=== PATIENT | female | born 1955 | race Caucasian/White ===

== ENCOUNTER 2019-04-22 23:29 | Emergency (ER) | payer SELFPAY ==
[2019-04-23] MEDS ORDERED: LIDOCAINE JELLY 2%- 5 ML TUBE ONE (00:13)
[2019-04-23 00:19] LABS: Absolute Lymphocytes (CBC) 1.8 K/uL (0.7-4.9); Absolute Monocytes 0.7 K/uL (0.1-1.3); Absolute Neutrophil 3.9 K/uL (1.8-8.0); Basophils % 1.3 % (0-1.3); Eosinophils % 4.7 % (0-4.4); Hematocrit 38.7 % (36.0-45.0); Lymphocytes % 25.7 % (15.3-44.8); MPV 7.8 fL (7.6-11.3); Monocytes % 10.8 % (3.3-12.3)
[2019-04-23 00:33] LABS: BUN Blood Urea Nitrogen 7 mg/dL (7-18); Bicarbonate 25 mmol/L (21-32); Glucose Level 71 mg/dL (74-106); Potassium 3.5 mmol/L (3.5-5.1); Sodium Level 126 mmol/L (136-145)
[2019-04-23] MEDS ORDERED: NA CHLORIDE 0.9% 50 ML IV ONE (01:00)
[2019-04-23] MEDS ORDERED: CLINDAMYCIN IV 150 MG/ML (4 mL) VIAL ONE (01:01)
--- NOTE | 2019-04-23 01:05 | EDPHYS ---
Physician Documentation [facility] Name: Kristin Meyers Age: 63 yrs Sex: Female : 1955 Arrival Date: 04/22/2019 Time: 23:30 Bed 17 Private MD: ED Physician David Muñoz HPI: 04/22 23:55 This 63 yrs old Female presents to ER via Ambulatory with complaints of cp Insect Bite. 23:55 The patient or guardian complains of a bite, by an insect, swelling, tenderness. The cp complaints affect the medial aspect right upper arm. Context: Patient reports she was taking trash out when she struck spider web with right arm and felt spider bite. Patient reports increasing redness, swelling and drainage. Onset: The symptoms/episode began/occurred this morning. Treatment prior to arrival includes: no previous treatment. Associated signs and symptoms: Pertinent positives: erythema, swelling, warmth, Pertinent negatives: decreased range of motion, fever, numbness, vomiting. 23:55 Severity of symptoms: in the emergency department the symptoms are unchanged, despite cp home interventions. Historical: - Allergies: 23:41 Keflex; aa1 - Home Meds: 23:41 clonazepam 0.5 mg Oral tab 1 tab nightly [Active]; hydrocodone-acetaminophen 10-325 mg aa1 Oral tab 1 tab every 4 hours [Active]; Nuvigil Oral [Active]; Tramadol Oral [Active]; - PMHx: 23:41 Back pain; Chronic pain; Fibromyalgia; aa1 - PSHx: 23:41 Hysterectomy; R hip sx; Bladder suspension; aa1 - Immunization history:: Last tetanus immunization: < 5 years ago. - Social history:: Smoking status: Patient uses tobacco products, smokes one pack cigarettes per day. - Ebola Screening: : No symptoms or risks identified at this time. ROS: 04/23 00:05 Constitutional: Negative for body aches, chills, fever, poor PO intake. cp 00:05 Eyes: Negative for injury, pain, redness, and discharge. cp 00:05 ENT: Negative for drainage from ear(s), ear pain, sore throat, difficulty swallowing, difficulty handling secretions. 00:05 Cardiovascular: Negative for chest pain, palpitations. 00:05 Respiratory: Negative for cough, shortness of breath, wheezing. 00:05 Abdomen/GI: Negative for abdominal pain, nausea, vomiting, and diarrhea. 00:05 Skin: Positive for erythema, swelling, of the medial aspect right upper arm. 00:05 Neuro: Negative for altered mental status, dizziness, headache, weakness. 00:05 All other systems are negative. Exam: 00:10 Constitutional: The patient appears in no acute distress, alert, awake, cp non-diaphoretic, non-toxic, well developed, well nourished. 00:10 Head/Face: Normocephalic, atraumatic. cp 00:10 Eyes: Periorbital structures: appear normal, Conjunctiva: normal, no exudate, no injection, Sclera: no appreciated abnormality, Lids and lashes: appear normal, bilaterally. 00:10 ENT: External ear(s): are unremarkable, Nose: is normal, Mouth: is normal, Posterior pharynx: is normal, airway is patent, no erythema, no exudate, Voice: is normal. 00:10 Chest/axilla: Inspection: normal. 00:10 Cardiovascular: Rate: normal, Rhythm: regular. 00:10 Respiratory: the patient does not display signs of respiratory distress, Respirations: normal, no use of accessory muscles, no retractions, no splinting, no tachypnea, labored breathing, is not present, Breath sounds: are clear throughout, no decreased breath sounds, no stridor, no wheezing. 00:10 Abdomen/GI: Exam negative for discomfort, distension, guarding, Inspection: abdomen appears normal. 00:10 Back: pain, is absent, ROM is normal. 00:10 Skin: cellulitis, that is moderate, well demarcated, on the medial aspect right upper arm. Vital Signs: 04/22 23:41 BP 172 / 83; Pulse 79; Resp 18; Temp 97.3; Pulse Ox 99% on R/A; Weight 49.9 kg (R); aa1 Height 5 ft. 5 in. (165.10 cm) (R); Pain 0/10; 04/23 00:30 BP 141 / 89; Pulse 82; Resp 16; Pulse Ox 99% on R/A; mt 01:30 BP 145 / 91; Pulse 67; Resp 17 S; Pulse Ox 98% on R/A; cc3 04/22 23:41 Body Mass Index 18.30 (49.90 kg, 165.10 cm) aa1 MDM: 04/22 23:44 Patient medically screened. 04/23 00:00 Differential diagnosis: cellulitis, abscess, localized allergic reaction. cp 01:02 Data reviewed: vital signs, nurses notes, lab test result(s), and as a result, I will cp discharge patient. 01:02 Counseling: I had a detailed discussion with the patient and/or guardian regarding: the cp historical points, exam findings, and any diagnostic results supporting the discharge/admit diagnosis, lab results, the need for outpatient follow up, a family practitioner, to return to the emergency department if symptoms worsen or persist or if there are any questions or concerns that arise at home. Response to treatment: the patient's symptoms have mildly improved after treatment, and as a result, I will discharge patient. 04/22 23:52 Order name: Wound Culture 04/22 23:52 Order name: BMP; Complete Time: 00:35 cp 04/23 00:34 Interpretation: Normal except: NA 126; CL 94; GLUC 71; CRE 0.37; CA 8.2. 04/22 23:52 Order name: Misc. Order: outline area of erythema; Complete Time: 01:03 04/22 23:52 Order name: CBC with Diff; Complete Time: 00:35 04/22 23:52 Order name: Wound dressing: bacitracin; Complete Time: 00:41 cp 04/22 23:52 Order name: IV; Complete Time: 00:40 cp Administered Medications: 00:15 Drug: Lidocaine Gel 2 % 1 ea Volume: 15 ml; Route: Mucous Membrane; cc3 00:30 Follow up: Response: No adverse reaction cc3 01:00 Drug: Clindamycin 600 mg Route: IVPB; Infused Over: 30 mins; Site: left antecubital; cc3 01:30 Follow up: Response: No adverse reaction; IV Status: Completed infusion; IV Intake: [id number] Disposition: 23:56 Co-signature as Attending Physician, David Muñoz MD. Disposition: 04/23/19 01:03 Discharged to Home. Impression: Cellulitis of right upper limb. - Condition is Stable. - Discharge Instructions: Cellulitis, Adult. - Prescriptions for Clindamycin HCl 300 mg Oral Capsule - take 1 capsule by ORAL route every 6 hours for 10 days; 40 capsule. Bactrim DS 800- 160 mg Oral Tablet - take 1 tablet by ORAL route every 12 hours for 10 days; 20 tablet. - Medication Reconciliation Form, Thank You Letter, Antibiotic Education, Prescription Opioid Use form. - Follow up: Private Physician; When: 48 Hours; Reason: Recheck today's complaints. - Problem is new. - Symptoms have improved. Signatures: Dispatcher [employer] EDMS Marian Stallings RN RN aa1 Mars Perez PA PA cp Starr, Gregory, MD MD gs Cordel, Charlene cc3 Corrections: (The following items were deleted from the chart) 00:35 00:34 Normal except: NA 126; CL 94; GLUC 71; CRE 0.37. cp cp 01:39 01:03 04/23/2019 01:03 Discharged to Home. Impression: Cellulitis of right upper limb. cc3 Condition is Stable. Forms are Medication Reconciliation Form, Thank You Letter, Antibiotic Education, Prescription Opioid Use. Follow up: Private Physician; When: 48 Hours; Reason: Recheck today's complaints. Problem is new. Symptoms have improved. cp
--- NOTE | 2019-04-23 01:05 | ER ---
Nurse's Notes [facility] Name: Kristin Meyers Age: 63 yrs Sex: Female : 1955 Arrival Date: 04/22/2019 Time: 23:30 Bed 17 Private MD: Diagnosis: Cellulitis of right upper limb Presentation: 04/22 23:38 Presenting complaint: Patient states: she got into a spider web this morning and felt aa1 something bite the back of her R arm and now has redness and blisters starting to form and c/o pain \T\ itching. Transition of care: patient was not received from another setting of care. Onset of symptoms was April 22, 2019. Risk Assessment: Do you want to hurt yourself or someone else? Patient reports no desire to harm self or others. Initial Sepsis Screen: Does the patient meet any 2 criteria? No. Patient's initial sepsis screen is negative. Does the patient have a suspected source of infection? No. Patient's initial sepsis screen is negative. Care prior to arrival: None. 23:38 Method Of Arrival: Ambulatory aa1 23:38 Acuity: ANAHI 4 aa1 Triage Assessment: 23:41 Bite description: bite sustained to right bicep and right antecubital area is from aa1 insect by a spider, animal information: vaccination(s) is not applicable. General: Appears in no apparent distress. comfortable, Behavior is calm, cooperative, appropriate for age. Historical: - Allergies: 23:41 Keflex; aa1 - Home Meds: 23:41 clonazepam 0.5 mg Oral tab 1 tab nightly [Active]; hydrocodone-acetaminophen 10-325 mg aa1 Oral tab 1 tab every 4 hours [Active]; Nuvigil Oral [Active]; Tramadol Oral [Active]; - PMHx: 23:41 Back pain; Chronic pain; Fibromyalgia; aa1 - PSHx: 23:41 Hysterectomy; R hip sx; Bladder suspension; aa1 - Immunization history:: Last tetanus immunization: < 5 years ago. - Social history:: Smoking status: Patient uses tobacco products, smokes one pack cigarettes per day. - Ebola Screening: : No symptoms or risks identified at this time. Screenin:55 Abuse screen: Denies threats or abuse. Denies injuries from another. Nutritional cc3 screening: No deficits noted. Tuberculosis screening: No symptoms or risk factors identified. Fall Risk Ambulatory Aid- None/Bed Rest/Nurse Assist (0 pts). Gait- Normal/Bed Rest/Wheelchair (0 pts) Mental Status- Oriented to own ability (0 pts). Assessment: 23:55 Pain: Complains of pain in right arm and right bicep. Derm: Skin has blisters on right cc3 arm Skin is red, on the right arm. 04/23 00:18 Reassessment: Patient appears in no apparent distress at this time. Patient and/or cc3 family updated on plan of care and expected duration. Pain level reassessed. Patient is alert, oriented x 3, equal unlabored respirations, skin warm/dry/pink. 01:40 Reassessment: Patient appears in no apparent distress at this time. Patient and/or cc3 family updated on plan of care and expected duration. Pain level reassessed. Patient is alert, oriented x 3, equal unlabored respirations, skin warm/dry/pink. RADHA Perez discharged the patient home with prescription given. IV cannula removed and patient left ER vitally stable and ambulatory. Patient denies pain at this time. Patient states feeling better. Patient states symptoms have improved. Vital Signs: 04/22 23:41 BP 172 / 83; Pulse 79; Resp 18; Temp 97.3; Pulse Ox 99% on R/A; Weight 49.9 kg (R); aa1 Height 5 ft. 5 in. (165.10 cm) (R); Pain 0/10; 04/23 00:30 BP 141 / 89; Pulse 82; Resp 16; Pulse Ox 99% on R/A; mt 01:30 BP 145 / 91; Pulse 67; Resp 17 S; Pulse Ox 98% on R/A; cc3 04/22 23:41 Body Mass Index 18.30 (49.90 kg, 165.10 cm) aa1 ED Course: 04/22 23:30 Patient arrived in ED. es 23:40 Triage completed. aa1 23:41 Arm band placed on right wrist. Patient placed in an exam room, on a stretcher. aa1 23:44 Mars Perez PA is PHCP. cp 23:44 David Muñoz MD is Attending Physician. cp 23:52 Stefani Wilson is Primary Nurse. cc3 23:55 Patient has correct armband on for positive identification. Bed in low position. Call cc3 light in reach. Side rails up X 1. Pulse ox on. NIBP on. 04/23 00:10 Inserted saline lock: 20 gauge in left antecubital area, using aseptic technique. Blood cc3 collected. 01:40 No provider procedures requiring assistance completed. IV discontinued, intact, cc3 bleeding controlled, No redness/swelling at site. Pressure dressing applied. Administered Medications: 00:15 Drug: Lidocaine Gel 2 % 1 ea Volume: 15 ml; Route: Mucous Membrane; cc3 00:30 Follow up: Response: No adverse reaction cc3 01:00 Drug: Clindamycin 600 mg Route: IVPB; Infused Over: 30 mins; Site: left antecubital; cc3 01:30 Follow up: Response: No adverse reaction; IV Status: Completed infusion; IV Intake: [id number] Intake: 01:30 IV: 50ml; Total: 50ml. cc3 Outcome: 01:03 Discharge ordered by MD. cp 01:39 Patient left the ED. cc3 01:40 Discharged to home ambulatory. cc3 01:40 Condition: stable 01:40 Discharge instructions given to patient, Instructed on discharge instructions, follow up and referral plans. medication usage, Demonstrated understanding of instructions, follow-up care, medications, Prescriptions given X 2. Signatures: Marian Stallings RN RN aa1 Swati Valentine Corey, PA PA cp Thompson, Stefani Jones mt cc3 Corrections: (The following items were deleted from the chart) 02:31 02:30 Response: No adverse reaction cc3 cc3
[2019-04-23 01:43] VITALS: TEMP 97.3; O2SAT 99
[2019-04-23 01:45] VITALS: BP 141/89
== END 2019-04-23 01:39 | disposition home or self-care (01) ==
LOC: ER 23:29
DX: L03.113 Cellulitis of right upper limb (principal); F17.210 Nicotine dependence, cigarettes, uncomplicated; Z88.1 Allergy status to other antibiotic agents
CPT/HCPCS: 36415; 80048; 85025; 87070; 87205; 96365; 99284; S0077

== ENCOUNTER 2019-04-25 23:21 | Emergency (ER) | payer SELFPAY ==
[2019-04-26 00:04] LABS: Absolute Lymphocytes (CBC) 1.3 K/uL (0.7-4.9); Basophils % 1.1 % (0-1.3); Hematocrit 38.1 % (36.0-45.0); Lymphocytes % 23.1 % (15.3-44.8); MPV 8.1 fL (7.6-11.3); RBC Red Blood Cell Count 4.09 M/uL (3.86-4.86)
[2019-04-26 00:08] LABS: Protime INR 0.96
[2019-04-26] MEDS ORDERED: NA CHLORIDE 0.9% 1,000 ML ONE (00:12)
[2019-04-26 00:23] LABS: ALT/SGPT 29 U/L (12-78); AST/SGOT 26 U/L (15-37); Albumin 4.2 g/dL (3.4-5.0); Alkaline Phosphatase 66 U/L (45-117); BUN Blood Urea Nitrogen 6 mg/dL (7-18); Bicarbonate 23 mmol/L (21-32); Bilirubin Direct 0.1 mg/dL (0-0.2); Bilirubin Total 0.3 mg/dL (0.2-1.0); Glucose Level 73 mg/dL (74-106); Magnesium 1.8 mg/dL (1.8-2.4); NT PRO-BNP 67 pg/mL (<125); Potassium 4.3 mmol/L (3.5-5.1); Protein, Total 7.2 g/dL (6.4-8.2); Sodium Level 121 mmol/L (136-145); Troponin (Emerg Dept Use Only) < 0.02 ng/mL (0.0-0.045)
[2019-04-26] MEDS ORDERED: ASPIRIN 81 MG CHEWABLE TABLET ONE (00:25)
[2019-04-26 02:51] LABS: BUN Blood Urea Nitrogen 6 mg/dL (7-18); Bicarbonate 21 mmol/L (21-32); Glucose Level 74 mg/dL (74-106); Potassium 4.3 mmol/L (3.5-5.1); Sodium Level 123 mmol/L (136-145); Troponin (Emerg Dept Use Only) < 0.02 ng/mL (0.0-0.045)
--- NOTE | 2019-04-26 02:58 | EDPHYS ---
Physician Documentation [facility] Name: Kristin Meyers Age: 63 yrs Sex: Female : 1955 Arrival Date: 04/25/2019 Time: 23:27 Bed 27 Private MD: ED Physician Epi Love HPI: 04/26 00:07 This 63 yrs old Female presents to ER via EMS with complaints of chest/back snw pain. 00:07 The patient or guardian reports chest pain that is located primarily in the anterior snw chest wall, bilaterally. Onset: suddenly, just post taking Clindamycin. The pain radiates to back. Associated signs and symptoms: Pertinent positives: None. The chest pain is described as squeezing. Duration: The patient or guardian reports multiple episodes. Modifying factors: The symptoms are alleviated by nothing. the symptoms are aggravated by nothing. Severity of pain: At its worst the pain was moderate. EMS care prior to arrival includes: saline lock, supplemental oxygen. The patient has not experienced similar symptoms in the past. The patient has been recently seen by a physician: The patient has been recently seen at the [facility] Emergency Department, for unrelated complaints, was treated for cellulitis, area is much improved. Pt took her clindamycin on an empty stomach and then had sudden chest pain with some nausea. Pt with ETOH today. Historical: - Allergies: 04/25 23:33 Keflex; mg2 - Home Meds: 23:33 clonazepam 0.5 mg Oral tab 1 tab nightly [Active]; hydrocodone-acetaminophen 10-325 mg mg2 Oral tab 1 tab every 4 hours [Active]; Nuvigil Oral [Active]; Tramadol Oral [Active]; - PMHx: 23:33 Back pain; Chronic pain; Fibromyalgia; mg2 - PSHx: 23:33 Hysterectomy; ruptured bladder repair; mg2 - Immunization history:: Flu vaccine is not up to date. - Social history:: Smoking status: Patient uses tobacco products, smokes one-half pack cigarettes per day, Patient uses alcohol, weekly. Patient/guardian denies using street drugs, IV drugs. - Ebola Screening: : No symptoms or risks identified at this time. ROS: 04/26 00:01 Constitutional: Negative for fever, chills, and weight loss, Eyes: Negative for injury, snw pain, redness, and discharge, ENT: Negative for injury, pain, and discharge, Neck: Negative for injury, pain, and swelling. Respiratory: Negative for shortness of breath, cough, wheezing, and pleuritic chest pain, Abdomen/GI: Negative for abdominal pain, nausea, vomiting, diarrhea, and constipation, Back: Negative for injury, positive for pain, : Negative for injury, bleeding, discharge, and swelling, MS/Extremity: Negative for injury and deformity, Skin: Negative for injury, rash, and discoloration, Neuro: Negative for headache, weakness, numbness, tingling, and seizure. Cardiovascular: Positive for chest pain. Exam: 00:01 Constitutional: This is a well developed, well nourished patient who is awake, alert, snw and in no acute distress. Head/Face: Normocephalic, atraumatic. Eyes: Pupils equal round and reactive to light, extra-ocular motions intact. Lids and lashes normal. Conjunctiva and sclera are non-icteric and not injected. Cornea within normal limits. Periorbital areas with no swelling, redness, or edema. ENT: Nares patent. No nasal discharge, no septal abnormalities noted. Tympanic membranes are normal and external auditory canals are clear. Oropharynx with no redness, swelling, or masses, exudates, or evidence of obstruction, uvula midline. Mucous membranes moist. Neck: Trachea midline, no thyromegaly or masses palpated, and no cervical lymphadenopathy. Supple, full range of motion without nuchal rigidity, or vertebral point tenderness. No Meningismus. Chest/axilla: Normal chest wall appearance and motion. Nontender with no deformity. No lesions are appreciated. Cardiovascular: Regular rate and rhythm with a normal S1 and S2. No gallops, murmurs, or rubs. Normal PMI, no JVD. No pulse deficits. Respiratory: Lungs have equal breath sounds bilaterally, clear to auscultation and percussion. No rales, rhonchi or wheezes noted. No increased work of breathing, no retractions or nasal flaring. Abdomen/GI: Soft, non-tender, with normal bowel sounds. No distension or tympany. No guarding or rebound. No evidence of tenderness throughout. Back: No spinal tenderness. No costovertebral tenderness. Full range of motion. Skin: Warm, dry with normal turgor. Normal color with no rashes, healing lesions to right forearm, and no evidence of cellulitis. MS/ Extremity: Pulses equal, no cyanosis. Neurovascular intact. Full, normal range of motion. Neuro: Awake and alert, GCS 15, oriented to person, place, time, and situation. Cranial nerves II-XII grossly intact. Motor strength 5/5 in all extremities. Sensory grossly intact. Cerebellar exam normal. Normal gait. Vital Signs: 04/25 23:31 BP 155 / 99; Pulse 80; Resp 18; Temp 98.3; Pulse Ox 96% on R/A; Weight 48.53 kg; Height mg2 5 ft. 5 in. (165.10 cm); Pain 8/10; 04/26 01:17 BP 139 / 91; Pulse 73; Resp 18; Temp 98.2; Pulse Ox 97% on R/A; Pain 2/10; mg2 02:21 BP 126 / 78; Pulse 70; Resp 18; Temp 98.2; Pulse Ox 97% on R/A; Pain 1/10; mg2 04/25 23:31 Body Mass Index 17.81 (48.53 kg, 165.10 cm) mg2 MDM: 04/25 23:52 Patient medically screened. snw 04/26 03:05 The patient was given aspirin in the Emergency Department. JOSE Risk Score: 1 - Recent snw [<24hrs] Severe Angina, TOTAL SCORE = 1. Data reviewed: vital signs, nurses notes, lab test result(s), EKG. 04/25 23:36 Order name: Basic Metabolic Panel mg2 04/25 23:36 Order name: CBC with Diff; Complete Time: 00:11 mg2 04/25 23:36 Order name: LFT's mg2 04/25 23:36 Order name: Magnesium mg2 04/25 23:36 Order name: NT PRO-BNP; Complete Time: 00:37 mg2 04/25 23:36 Order name: PT-INR; Complete Time: 00:11 mg2 04/25 23:36 Order name: Troponin (emerg Dept Use Only); Complete Time: 00:37 mg2 04/25 23:36 Order name: XRAY Chest (1 view) mg2 04/25 23:37 Order name: Basic Metabolic Panel; Complete Time: 00:37 EDMS 04/25 23:37 Order name: Liver (Hepatic) Function; Complete Time: 00:37 EDMS 04/25 23:37 Order name: Magnesium; Complete Time: 00:37 EDMS 04/26 02:05 Order name: Chem 7; Complete Time: 02:51 snw 04/26 02:05 Order name: Troponin (emerg Dept Use Only); Complete Time: 02:51 snw 04/25 23:36 Order name: EKG; Complete Time: 23:37 mg2 04/25 23:36 Order name: Cardiac monitoring; Complete Time: 23:53 mg2 04/25 23:36 Order name: EKG - Nurse/Tech; Complete Time: :52 mg2 04/25 23:36 Order name: IV Saline Lock; Complete Time: :52 mg2 04/25 23:36 Order name: Labs collected and sent; Complete Time: :52 mg2 04/25 23:36 Order name: O2 Per Protocol; Complete Time: :52 mg2 04/25 23:36 Order name: O2 Sat Monitoring; Complete Time: 23:52 mg2 Administered Medications: 00:00 Drug: NS 0.9% 1000 ml Route: IV; Rate: 125 ml/hr; Site: right forearm; mg2 02:58 Follow up: Response: No adverse reaction; IV Status: Completed infusion; IV Intake: mg2 500ml 00:14 Drug: Aspirin Chewable Tablet 324 mg Route: PO; mg2 01:52 Follow up: Response: No adverse reaction; Marked relief of symptoms mg2 00:42 Drug: NS 0.9% 500 ml Route: IV; Rate: bolus; Site: right forearm; mg2 02:43 Follow up: Response: No adverse reaction; IV Status: Completed infusion mg2 Disposition: 04:28 Co-signature as Attending Physician, Epi Love MD. rn Disposition: 04/26/19 02:57 Discharged to Home. Impression: Chest pain, unspecified, Hyponatremia. - Condition is Stable. - Discharge Instructions: Nonspecific Chest Pain, Hyponatremia, Aspirin and Your Heart. - Medication Reconciliation Form, Thank You Letter, Antibiotic Education, Prescription Opioid Use form. - Follow up: Private Physician; When: 2 - 3 days; Reason: Recheck today's complaints, Continuance of care, Re-evaluation by your physician. Follow up: Emergency Department; When: As needed; Reason: Worsening of condition. - Notes: Please stop Bactrim. Continue Clindamycin. Eat with this medication. Please avoid alcohol. Signatures: Dispatcher [employer] EDMS Clemencia Kumar, LAWYER CRIMINAL-C LAWYER CRIMINAL-Csnw Epi Love MD MD rn Gardose, Michele, RN RN mg2 Corrections: (The following items were deleted from the chart) 03:21 02:57 04/26/2019 02:57 Discharged to Home. Impression: Chest pain, unspecified; mg2 Hyponatremia. Condition is Stable. Forms are Medication Reconciliation Form, Thank You Letter, Antibiotic Education, Prescription Opioid Use. Follow up: Private Physician; When: 2 - 3 days; Reason: Recheck today's complaints, Continuance of care, Re-evaluation by your physician. Follow up: Emergency Department; When: As needed; Reason: Worsening of condition. snw
--- NOTE | 2019-04-26 02:58 | ER ---
Nurse's Notes [facility] Name: Kristin Meyers Age: 63 yrs Sex: Female : 1955 Arrival Date: 04/25/2019 Time: 23:27 Bed 27 Private MD: Diagnosis: Chest pain, unspecified;Hyponatremia Presentation: 04/25 23:27 Presenting complaint: EMS states: patient was here last Monday because of spider bite mg2 and was given IV antibiotic and discharge with clindamycin and bactrim. now , she is complaining of epigastric pain radiating to the chest and back with throat tightness. she also had 2 bottles of beer this afternoon. Transition of care: patient was not received from another setting of care. Onset of symptoms was April 25, 2019. Risk Assessment: Do you want to hurt yourself or someone else? Patient reports no desire to harm self or others. Initial Sepsis Screen: Does the patient meet any 2 criteria? No. Patient's initial sepsis screen is negative. Does the patient have a suspected source of infection? No. Patient's initial sepsis screen is negative. Care prior to arrival: None. 23:27 Method Of Arrival: EMS: [facility] mg2 23:27 Acuity: ANAHI 3 mg2 Historical: - Allergies: 23:33 Keflex; mg2 - Home Meds: 23:33 clonazepam 0.5 mg Oral tab 1 tab nightly [Active]; hydrocodone-acetaminophen 10-325 mg mg2 Oral tab 1 tab every 4 hours [Active]; Nuvigil Oral [Active]; Tramadol Oral [Active]; - PMHx: 23:33 Back pain; Chronic pain; Fibromyalgia; mg2 - PSHx: 23:33 Hysterectomy; ruptured bladder repair; mg2 - Immunization history:: Flu vaccine is not up to date. - Social history:: Smoking status: Patient uses tobacco products, smokes one-half pack cigarettes per day, Patient uses alcohol, weekly. Patient/guardian denies using street drugs, IV drugs. - Ebola Screening: : No symptoms or risks identified at this time. Screenin/31 00:03 Abuse screen: Denies threats or abuse. Denies injuries from another. Nutritional mg2 screening: No deficits noted. Tuberculosis screening: No symptoms or risk factors identified. Fall Risk IV access (20 points). Assessment: 00:14 General: Appears in no apparent distress. comfortable, Behavior is calm, cooperative. mg2 Pain: Complains of pain in chest Pain radiates to back Pain currently is 8 out of 10 on a pain scale. Quality of pain is described as heavy, Pain began 4 hours ago. Is intermittent. Neuro: Level of Consciousness is awake, alert, obeys commands, Oriented to person, place, time, situation. Cardiovascular: Capillary refill < 3 seconds Patient's skin is warm and dry. Respiratory: Airway is patent Respiratory effort is even, unlabored, Respiratory pattern is regular, symmetrical. GI: Abdomen is flat, non-distended, Reports epigastric pain. : No signs and/or symptoms were reported regarding the genitourinary system. EENT: Reports throat tightness. Derm: Skin is intact, is healthy with good turgor, Skin is pink, warm \T\ dry. normal. Musculoskeletal: Circulation, motion, and sensation intact. Capillary refill < 3 seconds. 01:17 Reassessment: Patient appears in no apparent distress at this time. Patient and/or mg2 family updated on plan of care and expected duration. Pain level reassessed. Patient is alert, oriented x 3, equal unlabored respirations, skin warm/dry/pink. Patient states feeling better. Patient states symptoms have improved. 02:42 Reassessment: Patient appears in no apparent distress at this time. Patient and/or mg2 family updated on plan of care and expected duration. Pain level reassessed. Patient is alert, oriented x 3, equal unlabored respirations, skin warm/dry/pink. Patient states feeling better. Vital Signs: 04/25 23:31 BP 155 / 99; Pulse 80; Resp 18; Temp 98.3; Pulse Ox 96% on R/A; Weight 48.53 kg; Height mg2 5 ft. 5 in. (165.10 cm); Pain 8/10; 04/26 01:17 BP 139 / 91; Pulse 73; Resp 18; Temp 98.2; Pulse Ox 97% on R/A; Pain 2/10; mg2 02:21 BP 126 / 78; Pulse 70; Resp 18; Temp 98.2; Pulse Ox 97% on R/A; Pain 1/10; mg2 04/25 23:31 Body Mass Index 17.81 (48.53 kg, 165.10 cm) mg2 ED Course: 04/25 23:27 Patient arrived in ED. mg2 23:31 Triage completed. mg2 23:33 Arm band placed on right wrist. mg2 23:34 Antolin Lal RN is Primary Nurse. mg2 23:47 Clemencia [facility]C [facility]. snw 23:47 Epi Love MD is Attending Physician. snw 23:53 Basic Metabolic Panel Sent. cm6 23:53 LFT's Sent. cm6 23:53 Magnesium Sent. cm6 23:56 X-ray completed. Portable x-ray completed in exam room. Patient tolerated procedure kw well. 23:57 XRAY Chest (1 view) In Process Unspecified. EDMS 04/26 00:02 No provider procedures requiring assistance completed. Inserted saline lock: 20 gauge mg2 in right forearm, using aseptic technique. Blood collected. 00:16 Patient has correct armband on for positive identification. mg2 02:22 Repeat lab(s) drawn. by co, sent to lab. mg2 03:10 IV discontinued, intact, bleeding controlled, No redness/swelling at site. Pressure mg2 dressing applied. Administered Medications: 00:00 Drug: NS 0.9% 1000 ml Route: IV; Rate: 125 ml/hr; Site: right forearm; mg2 02:58 Follow up: Response: No adverse reaction; IV Status: Completed infusion; IV Intake: mg2 500ml 00:14 Drug: Aspirin Chewable Tablet 324 mg Route: PO; mg2 01:52 Follow up: Response: No adverse reaction; Marked relief of symptoms mg2 00:42 Drug: NS 0.9% 500 ml Route: IV; Rate: bolus; Site: right forearm; mg2 02:43 Follow up: Response: No adverse reaction; IV Status: Completed infusion mg2 Intake: 02:58 IV: 500ml; Total: 500ml. mg2 Outcome: 02:57 Discharge ordered by . snw 03:10 Discharged to home ambulatory. mg2 03:10 Condition: stable 03:10 Discharge instructions given to patient, Instructed on discharge instructions, follow up and referral plans. Demonstrated understanding of instructions, follow-up care. 03:21 Patient left the ED. mg2 Signatures: Dispatcher [employer] EDMS Clemencia Kumar FNP-C CONSERVATION AGENT-[facility] [place] Dai kw Antolin Lal RN RN mg2 [place] cm6
[2019-04-26 03:28] VITALS: TEMP 98.2; O2SAT 97
[2019-04-26 03:29] VITALS: BP 126/78
--- NOTE | 2019-04-26 08:38 | EKG ---
Test Date: 2019-04-25 Test Time: 23:40:22 Survey Research Teacher: MG MEASUREMENT RESULTS: Intervals: Rate: 81 IA: 146 QRSD: 92 QT: 374 QTc: 434 [place]: P: 56 IA: 146 QRS: 65 T: 70 INTERPRETIVE STATEMENTS: Normal sinus rhythm Possible Lateral infarct, age undetermined Abnormal ECG No previous ECG available for comparison Electronically Signed On 04-26-19 08:37:19 CDT by Shaun London
--- NOTE | 2019-04-26 08:38 | RAD REPORT ---
EXAM DESCRIPTION: RAD - Chest Single View - 04/25/2019 11:59 pm CLINICAL HISTORY: CHEST PAIN Chest pain. COMPARISON: CHEST PA AND LAT 2 VIEW dated 07/19/2009; CHEST PA AND LAT 2 VIEW dated 01/30/2005 FINDINGS: Portable technique limits examination quality. Diffuse emphysema is present. The heart is mildly prominent in size. No displaced fractures.Old left lateral rib fractures. IMPRESSION: Diffuse COPD.
== END 2019-04-26 03:21 | disposition home or self-care (01) ==
LOC: ER 23:21
DX: E87.1 Hypo-osmolality and hyponatremia (principal); F17.210 Nicotine dependence, cigarettes, uncomplicated; Z88.1 Allergy status to other antibiotic agents
CPT/HCPCS: 36415; 71045; 80048; 80076; 83735; 83880; 84484; 85025; 85610; 93005; 96360; 96361; 99284; J7030

== ENCOUNTER 2020-07-21 00:25 | Emergency (ER) | payer SELFPAY ==
[2020-07-21] MEDS ORDERED: KETOROLAC 30 MG/ML INJ ONE (01:38)
[2020-07-21 01:43] LABS: Basophils % 0.5 % (0-1.3); Hematocrit 37.2 % (36.0-45.0); Lymphocytes % 10.2 % (15.3-44.8); MPV 8.8 fL (7.6-11.3); Protime INR 1.09; RBC Red Blood Cell Count 3.96 M/uL (3.86-4.86)
[2020-07-21 01:57] LABS: ALT/SGPT 27 U/L (12-78); AST/SGOT 25 U/L (15-37); Albumin 4.1 g/dL (3.4-5.0); Alkaline Phosphatase 78 U/L (45-117); BUN Blood Urea Nitrogen 7 mg/dL (7-18); Bicarbonate 29 mmol/L (21-32); Bilirubin Direct 0.3 mg/dL (0-0.2); Bilirubin Total 0.8 mg/dL (0.2-1.0); Glucose Level 73 mg/dL (74-106); Magnesium 1.8 mg/dL (1.8-2.4); NT PRO-BNP 266 pg/mL (<125); Potassium 3.7 mmol/L (3.5-5.1); Protein, Total 7.9 g/dL (6.4-8.2); Sodium Level 133 mmol/L (136-145); Troponin (Emerg Dept Use Only) < 0.02 ng/mL (0.0-0.045)
--- NOTE | 2020-07-21 02:50 | EDPHYS ---
Physician Documentation [facility] Name: Kristin Meyers Age: 64 yrs Sex: Female : 1955 Arrival Date: 07/21/2020 Time: 00:27 Bed 16 Private MD: ED Physician Aime Malloy HPI: 07/21 06:43 This 64 yrs old Female presents to ER via Wheelchair with complaints of Leg tw4 Swelling, Feet Swelling, Back Pain. 06:43 The patient presents with swelling. The complaints affect the lateral aspect of left tw4 calf, left lateral ankle, lateral aspect of left foot, left calf, left Achilles, left heel, medial aspect of left calf, left medial ankle, medial aspect of left foot, left waters, anterior aspect of left ankle and dorsum of left foot, lateral aspect of right calf, right ankle, lateral aspect of right foot, right calf, right Achilles, right heel, medial aspect of right calf, medial aspect of right foot, right waters, anterior aspect of right ankle and dorsum of right foot. Context: The problem was sustained at home, resulted from. Onset: The symptoms/episode began/occurred today. Modifying factors: The symptoms are alleviated by nothing. the symptoms are aggravated by nothing. Severity of symptoms: At their worst the symptoms were moderate, in the emergency department the symptoms are unchanged. The patient has not experienced similar symptoms in the past. Historical: - Allergies: 01:04 No Known Drug Allergies; vc - Home Meds: 01:04 clonazepam 0.5 mg Oral tab 1 tab nightly [Active]; hydrocodone-acetaminophen 10-325 mg vc Oral tab 1 tab every 4 hours [Active]; Nuvigil 200 mg oral tab twice a day [Active]; - PMHx: 01:04 Back pain; Chronic pain; Fibromyalgia; chronic fatique; Osteoarthritis; vc - PSHx: 01:04 Hysterectomy; ruptured bladder repair; right femur fracture; vc - Immunization history:: Adult Immunizations up to date. - Social history:: Smoking status: Patient reports the use of cigarette tobacco products, smokes one pack cigarettes per day. ROS: 06:43 Constitutional: Negative for fever, chills, and weight loss, Eyes: Negative for injury, tw4 pain, redness, and discharge, Cardiovascular: Negative for chest pain, palpitations, and edema, Respiratory: Negative for shortness of breath, cough, wheezing, and pleuritic chest pain, Abdomen/GI: Negative for abdominal pain, nausea, vomiting, diarrhea, and constipation, MS/Extremity: Negative for injury and deformity, Skin: Negative for injury, rash, and discoloration, Neuro: Negative for headache, weakness, numbness, tingling, and seizure. Exam: 06:43 Constitutional: This is a well developed, well nourished patient who is awake, alert, tw4 and in no acute distress. Head/Face: Normocephalic, atraumatic. Chest/axilla: Normal chest wall appearance and motion. Nontender with no deformity. No lesions are appreciated. Cardiovascular: Regular rate and rhythm with a normal S1 and S2. No gallops, murmurs, or rubs. Normal PMI, no JVD. No pulse deficits. Respiratory: Lungs have equal breath sounds bilaterally, clear to auscultation and percussion. No rales, rhonchi or wheezes noted. No increased work of breathing, no retractions or nasal flaring. Abdomen/GI: Soft, non-tender, with normal bowel sounds. No distension or tympany. No guarding or rebound. No evidence of tenderness throughout. Back: No spinal tenderness. No costovertebral tenderness. Full range of motion. MS/ Extremity: Pulses equal, no cyanosis. Neurovascular intact. Full, normal range of motion. Neuro: Awake and alert, GCS 15, oriented to person, place, time, and situation. Cranial nerves II-XII grossly intact. Motor strength 5/5 in all extremities. Sensory grossly intact. Cerebellar exam normal. Normal gait. Vital Signs: 00:56 BP 131 / 99; Pulse 81; Resp 20; Temp 99.2; Pulse Ox 100% on R/A; Weight 45.36 kg; vc Height 5 ft. 5 in. (165.10 cm); Pain 10/10; 01:00 BP 120 / 68; Pulse 79; Resp 20; Pulse Ox 100% on R/A; vc 02:00 BP 94 / 64; Pulse 69; Resp 21; Pulse Ox 96% on R/A; vc 02:52 BP 130 / 78; Pulse 74; Resp 21; Pulse Ox 100% on R/A; vc 00:56 Body Mass Index 16.64 (45.36 kg, 165.10 cm) vc MDM: 00:38 Patient medically screened. tw4 06:44 Differential diagnosis: dislocation, open fracture, closed fracture. Data reviewed: tw4 vital signs, nurses notes. Data interpreted: Pulse oximetry: Interpretation: normal. Counseling: I had a detailed discussion with the patient and/or guardian regarding: the historical points, exam findings, and any diagnostic results supporting the discharge/admit diagnosis. Special discussion: I discussed with the patient/guardian in detail that at this point there is no indication for admission to the hospital. It is understood, however, that if the symptoms persist or worsen the patient needs to return immediately for re-evaluation. 07/21 01:10 Order name: Basic Metabolic Panel; Complete Time: 02:46 07/21 02:46 Interpretation: Normal except: GLUC 73; CRE 0.52; NA 133. 07/21 01:10 Order name: CBC with Diff; Complete Time: 02:46 07/21 02:49 Interpretation: Normal except: ASHLEY% 75.9; MN% 12.8; LYM% 10.2. 07/21 01:10 Order name: LFT's; Complete Time: 02:46 07/21 02:49 Interpretation: Normal except: BILID 0.3; GLOB 3.8. 07/21 01:10 Order name: Magnesium; Complete Time: 02:46 07/21 01:10 Order name: NT PRO-BNP; Complete Time: 02:46 07/21 02:49 Interpretation: Normal except: NT PRO-BNP 266. 07/21 01:10 Order name: PT-INR; Complete Time: 02:46 07/21 02:49 Interpretation: Normal except: PT 12.8. 07/21 01:10 Order name: Troponin (emerg Dept Use Only); Complete Time: 02:46 07/21 01:10 Order name: XRAY Chest (1 view) 07/21 01:10 Order name: EKG; Complete Time: 01:11 07/21 01:10 Order name: Cardiac monitoring; Complete Time: :42 07/21 01:10 Order name: EKG - Nurse/Tech; Complete Time: :42 07/21 01:10 Order name: IV Saline Lock; Complete Time: 01:42 tw4 07/21 01:10 Order name: Labs collected and sent; Complete Time: 07/21 01:10 Order name: O2 Per Protocol; Complete Time: 07/21 01:10 Order name: O2 Sat Monitoring; Complete Time: EC:43 Rate is 75 beats/min. Rhythm is regular. QRS [place] is Normal. LA interval is normal. QRS tw4 interval is normal. QT interval is normal. No Q waves. T waves are Flattened. No ST changes noted. Clinical impression: Normal ECG. Interpreted by me. Reviewed by me. Administered Medications: 01:33 Drug: TORadol 30 mg Route: IVP; Site: left forearm; vc 02:40 Follow up: Response: No adverse reaction vc 03:08 Drug: Lasix 40 mg Route: IVP; Site: left antecubital; vc 03:29 Follow up: Response: No adverse reaction vc Disposition: 07/21/20 02:50 Discharged to Home. Impression: Edema, not elsewhere classified. - Condition is Stable. - Discharge Instructions: Peripheral Edema. - Medication Reconciliation Form, Thank You Letter, Antibiotic Education, Prescription Opioid Use form. - Follow up: Private Physician; When: Upon discharge from the Emergency Department; Reason: Recheck today's complaints, Continuance of care, Re-evaluation by your physician. - Problem is new. - Symptoms are unchanged. Signatures: Dispatcher [employer] Aime Keen MD MD tw4 Cherelle Patiño RN RN vc Corrections: (The following items were deleted from the chart) 03:35 02:50 07/21/2020 02:50 Discharged to Home. Impression: Edema, not elsewhere classified. vc Condition is Stable. Forms are Medication Reconciliation Form, Thank You Letter, Antibiotic Education, Prescription Opioid Use. Follow up: Private Physician; When: Upon discharge from the Emergency Department; Reason: Recheck today's complaints, Continuance of care, Re-evaluation by your physician. Problem is new. Symptoms are unchanged. tw4
--- NOTE | 2020-07-21 02:50 | ER ---
Nurse's Notes [facility] Name: Kristin Meyres Age: 64 yrs Sex: Female : 1955 Arrival Date: 07/21/2020 Time: 00:27 Bed 16 Private MD: Diagnosis: Edema, not elsewhere classified Presentation: 07/21 00:56 Chief complaint: Patient states: "Both of my legs started selling Monday, now they vc hurt so bad. I also have an excruciating pain in the middle of the left side of my back that shoots to the front of my ribs on the left side. I took 1/2 a methadone to try and help with the pain because my hydrocodone weren't lasting very long. The methadone helped for about four hours.". Coronavirus screen: congestion, shortness of breath, Client presents with at least one sign or symptom that may indicate coronavirus-19. Standard/surgical mask placed on the client. Ebola Screen: No symptoms or risks identified at this time. Initial Sepsis Screen: Does the patient meet any 2 criteria? No. Patient's initial sepsis screen is negative. Does the patient have a suspected source of infection? No. Patient's initial sepsis screen is negative. Risk Assessment: Do you want to hurt yourself or someone else? Patient reports no desire to harm self or others. Onset of symptoms was July 18, 2020. 00:56 Method Of Arrival: Wheelchair vc 00:56 Acuity: ANAHI 3 vc Triage Assessment: 01:05 General: Appears in no apparent distress. uncomfortable, slender, Behavior is calm, vc cooperative, appropriate for age. Pain: Complains of pain in left mid back, right foot, left foot, right leg and left leg Pain radiates to anterior aspect of left lateral abdomen Pain currently is 10 out of 10 on a pain scale. Quality of pain is described as radiating, sharp, stabbing, Is intermittent, Alleviated by medications. Musculoskeletal: Swelling present in right foot, left foot, right leg and left leg. Historical: - Allergies: 01:04 No Known Drug Allergies; vc - Home Meds: 01:04 clonazepam 0.5 mg Oral tab 1 tab nightly [Active]; hydrocodone-acetaminophen 10-325 mg vc Oral tab 1 tab every 4 hours [Active]; Nuvigil 200 mg oral tab twice a day [Active]; - PMHx: 01:04 Back pain; Chronic pain; Fibromyalgia; chronic fatique; Osteoarthritis; vc - PSHx: 01:04 Hysterectomy; ruptured bladder repair; right femur fracture; vc - Immunization history:: Adult Immunizations up to date. - Social history:: Smoking status: Patient reports the use of cigarette tobacco products, smokes one pack cigarettes per day. Screenin:05 Abuse screen: Denies threats or abuse. Nutritional screening: No deficits noted. vc Tuberculosis screening: No symptoms or risk factors identified. Fall Risk None identified. Assessment: 00:35 Reassessment:. General: Appears in no apparent distress. uncomfortable, slender, vc Behavior is calm, cooperative, appropriate for age. Pain: Complains of pain in left leg and right leg and left foot and right foot and left mid back Pain radiates to anterior aspect of left lateral abdomen Pain currently is 10 out of 10 on a pain scale. Neuro: Level of Consciousness is awake, alert, obeys commands, Oriented to person, place, time, situation, Appropriate for age. Neuro: Neuro:. Cardiovascular: Capillary refill < 3 seconds Patient's skin is warm and dry. Cardiovascular:. Cardiovascular: Edema is 2+ to left ankle, left foot, left toes, right ankle, right foot and right toes. Respiratory: Airway is patent Respiratory effort is even, unlabored, Respiratory pattern is regular, symmetrical. GI: No signs and/or symptoms were reported involving the gastrointestinal system. : No signs and/or symptoms were reported regarding the genitourinary system. Derm: Musculoskeletal: 01:30 Reassessment: Patient and/or family updated on plan of care and expected duration. Pain vc level reassessed. 02:30 Reassessment: Patient and/or family updated on plan of care and expected duration. Pain vc level reassessed. Vital Signs: 00:56 BP 131 / 99; Pulse 81; Resp 20; Temp 99.2; Pulse Ox 100% on R/A; Weight 45.36 kg; vc Height 5 ft. 5 in. (165.10 cm); Pain 10/10; 01:00 BP 120 / 68; Pulse 79; Resp 20; Pulse Ox 100% on R/A; vc 02:00 BP 94 / 64; Pulse 69; Resp 21; Pulse Ox 96% on R/A; vc 02:52 BP 130 / 78; Pulse 74; Resp 21; Pulse Ox 100% on R/A; vc 00:56 Body Mass Index 16.64 (45.36 kg, 165.10 cm) vc ED Course: 00:27 Patient arrived in ED. bp1 00:32 Cherelle Patiño RN is Primary Nurse. vc 00:38 Aime Malloy MD is Attending Physician. tw4 01:02 Triage completed. vc 01:07 Arm band placed on. vc 01:07 Patient has correct armband on for positive identification. Placed in gown. Bed in low vc position. Call light in reach. Pulse ox on. NIBP on. 01:40 XRAY Chest (1 view) In Process Unspecified. EDMS 03:28 No provider procedures requiring assistance completed. IV discontinued, intact, vc bleeding controlled, No redness/swelling at site. Pressure dressing applied. Administered Medications: 01:33 Drug: TORadol 30 mg Route: IVP; Site: left forearm; vc 02:40 Follow up: Response: No adverse reaction vc 03:08 Drug: Lasix 40 mg Route: IVP; Site: left antecubital; vc 03:29 Follow up: Response: No adverse reaction vc Outcome: 02:50 Discharge ordered by . tw4 03:28 Discharged to home via wheelchair. vc 03:28 Condition: good 03:28 Discharge instructions given to patient, Instructed on discharge instructions, follow up and referral plans. Demonstrated understanding of instructions, follow-up care. 03:35 Patient left the ED. vc Signatures: Dispatcher [employer] EDTX Aime Malloy MD MD tw4 Cherelle Patiño, RN RN vc Yeny Espinoza bp1
[2020-07-21] MEDS ORDERED: FUROSEMIDE 20 MG/ 2ML VIAL ONE (03:05)
[2020-07-21] MEDS ORDERED: FUROSEMIDE 40 MG/4 ML VIAL ONE (03:05)
--- NOTE | 2020-07-21 08:09 | RAD REPORT ---
EXAM DESCRIPTION: [place] Single View07/21/2020 1:40 am CLINICAL HISTORY: Shortness breath COMPARISON: 2019 FINDINGS: Lungs are hyperaerated. The lungs appear clear of acute infiltrate. The heart is normal size IMPRESSION: COPD without visualization of an abnormality
--- NOTE | 2020-07-21 10:44 | EKG ---
Test Date: 2020-07-21 Test Time: 01:16:18 Safety And Security Officer: MEASUREMENT RESULTS: Intervals: Rate: 75 SC: 164 QRSD: 88 QT: 386 QTc: 431 [place]: P: 73 SC: 164 QRS: 77 T: 73 INTERPRETIVE STATEMENTS: Normal sinus rhythm Possible Lateral infarct, age undetermined Abnormal ECG Compared to ECG 04/25/2019 23:40:22 No significant changes Electronically Signed On 07-21-20 10:43:18 CDT by Santiago Gallo
[2020-07-25 10:07] VITALS: TEMP 99.2
[2020-07-25 10:11] VITALS: BP 130/78; O2SAT 100
== END 2020-07-21 03:35 | disposition home or self-care (01) ==
LOC: ER 00:25
DX: R60.9 Edema, unspecified (principal); F17.210 Nicotine dependence, cigarettes, uncomplicated
CPT/HCPCS: 36415; 71045; 80048; 80076; 83735; 83880; 84484; 85025; 85610; 93005; 99284; J1940

== ENCOUNTER 2020-08-14 02:19 | Emergency (ER) | payer SELFPAY ==
[2020-08-14 03:09] LABS: Absolute Lymphocytes (CBC) 0.6 K/uL (0.7-4.9); Basophils % 0.5 % (0-1.3); Hematocrit 34.4 % (36.0-45.0); Lymphocytes % 3.7 % (15.3-44.8); MPV 8.2 fL (7.6-11.3); RBC Red Blood Cell Count 3.69 M/uL (3.86-4.86)
[2020-08-14 03:13] LABS: Protime INR 1.07
[2020-08-14 03:17] LABS: ALT/SGPT 35 U/L (12-78); AST/SGOT 38 U/L (15-37); Albumin 3.2 g/dL (3.4-5.0); Alkaline Phosphatase 113 U/L (45-117); Amylase 26 U/L (25-115); BUN Blood Urea Nitrogen 7 mg/dL (7-18); Bicarbonate 23 mmol/L (21-32); Bilirubin Direct 0.1 mg/dL (0-0.2); Bilirubin Total 0.6 mg/dL (0.2-1.0); CKMB Creatine Kinase MB < 1.0 ng/mL (0.3-3.6); Creatine Phosphokinase 53 U/L (26-192); Glucose Level 96 mg/dL (74-106); Lipase 51 U/L (73-393); Potassium 3.6 mmol/L (3.5-5.1); Protein, Total 6.8 g/dL (6.4-8.2); Sodium Level 133 mmol/L (136-145); Troponin (Emerg Dept Use Only) < 0.02 ng/mL (0.0-0.045)
[2020-08-14] MEDS ORDERED: ACETAMINOPHEN 325 MG TABLET ONE (03:25)
[2020-08-14 03:31] LABS: Blood Morphology Comment NOTED (NOT SEEN); Platelet Estimate ADEQ
[2020-08-14 03:32] LABS: Hypochromasia 1+; Stomatocytes 1+
[2020-08-14] MEDS ORDERED: NA CHLORIDE 0.9% 500 ML ONE (03:48)
[2020-08-14] MEDS ORDERED: NA CHLORIDE 0.9% 1,000 ML ONE (03:48)
[2020-08-14] MEDS ORDERED: clonazePAM 0.5 MG TAB ONE (04:11)
[2020-08-14 04:13] LABS: Urine Blood 2+ (NEG); Urine Glucose NEGATIVE (NEG); Urine Protein 1+ (NEG); Urine pH 5.5 (5.0-7.0)
[2020-08-14 04:39] LABS: Urine Bacteria >50 /HPF (<20); Urine Culture Reflex Order REFLEXED; Urine Mucus 1+ /HPF (NONE SEEN)
--- NOTE | 2020-08-14 07:02 | EDPHYS ---
Physician Documentation [facility] Name: Kristin Meyers Age: 64 yrs Sex: Female : 1955 Arrival Date: 08/14/2020 Time: 02:20 Bed 8 Private MD: ED Physician Clint Dotson HPI: 08/14 03:46 This 64 yrs old Female presents to ER via EMS with complaints of Fever, pkl Chills. 03:49 The patient reports fever, with an emergency department temperature of 102 degrees pkl Fahrenheit. Onset: The symptoms/episode began/occurred today. Associated signs and symptoms: Pertinent positives: chills, cough, with clear sputum, nausea, left flank pain. Historical: - Allergies: 02:38 Keflex; sg - PMHx: 02:38 Back pain; chronic fatique; Fibromyalgia; osteoarthritis; sg - PSHx: 02:38 Hysterectomy; ruptured bladder repair; right femur fracture; sg - Immunization history:: Adult Immunizations not up to date. - Social history:: Smoking status: Patient denies any tobacco usage or history of. ROS: 03:49 Eyes: Negative for injury, pain, redness, and discharge, ENT: Negative for injury, pkl pain, and discharge, Neck: Negative for injury, pain, and swelling, Cardiovascular: Negative for chest pain, palpitations, and edema. 03:49 Respiratory: Positive for cough, with clear sputum. 03:49 Abdomen/GI: Positive for nausea. 03:49 Back: Positive for flank pain, on the left. 03:49 : Negative for urinary symptoms. 03:49 MS/extremity: Negative for acute changes. 03:49 Skin: Negative for rash. 03:49 Neuro: Negative for altered mental status. Exam: 03:49 Head/Face: Normocephalic, atraumatic. Eyes: Pupils equal round and reactive to light, pkl extra-ocular motions intact. Lids and lashes normal. Conjunctiva and sclera are non-icteric and not injected. Cornea within normal limits. Periorbital areas with no swelling, redness, or edema. ENT: Nares patent. No nasal discharge, no septal abnormalities noted. Tympanic membranes are normal and external auditory canals are clear. Oropharynx with no redness, swelling, or masses, exudates, or evidence of obstruction, uvula midline. Mucous membranes moist. Neck: Trachea midline, no thyromegaly or masses palpated, and no cervical lymphadenopathy. Supple, full range of motion without nuchal rigidity, or vertebral point tenderness. No Meningismus. Chest/axilla: Normal chest wall appearance and motion. Nontender with no deformity. No lesions are appreciated. Cardiovascular: Regular rate and rhythm with a normal S1 and S2. No gallops, murmurs, or rubs. Normal PMI, no JVD. No pulse deficits. Respiratory: Lungs have equal breath sounds bilaterally, clear to auscultation and percussion. No rales, rhonchi or wheezes noted. No increased work of breathing, no retractions or nasal flaring. Abdomen/GI: Soft, non-tender, with normal bowel sounds. No distension or tympany. No guarding or rebound. No evidence of tenderness throughout. 03:49 Back: pain, that is moderate, of the left flank. 03:49 : Exam negative for acute changes. 03:49 Musculoskeletal/extremity: Exam is negative for acute changes. 03:49 Skin: Exam negative for rash. 03:49 Neuro: Orientation: is normal, Mentation: is normal, Cranial nerves: grossly normal, Motor: is normal. Vital Signs: 02:35 BP 106 / 58; Pulse 100; Resp 20; Temp 102; Pulse Ox 98% on R/A; sg 02:43 Weight 50.8 kg (R); sg 03:30 BP 90 / 60; Pulse 94; Resp 17; Pulse Ox 99% on 2 lpm NC; Pain 6/10; fu 04:34 BP 91 / 61; Pulse 83; Temp 98.9; Pulse Ox 100% on 2 lpm NC; Pain 0/10; fu 06:34 BP 96 / 68; Pulse 79; Resp 16; Temp 97.3; Pulse Ox 96% on 1 lpm NC; Pain 0/10; fu 07:00 BP 100 / 58; Pulse 81; Resp 17; Pulse Ox 96% ; bp 08:10 BP 93 / 62; Pulse 72; Resp 17; Temp 97.5; Pulse Ox 96% ; bp MDM: 02:58 Patient medically screened. pkl 06:56 Data reviewed: vital signs, nurses notes, lab test result(s). ED course: Discussed lab pkl and imaging studies with patient. Advised to follow up with PCP next week. To stay home until Covid 19 result is available. Return if symptoms are worse. Patient understood instructions. 08/14 02:42 Order name: Amylase, Serum; Complete Time: 05:13 08/14 02:42 Order name: Basic Metabolic Panel; Complete Time: 05:13 08/14 02:42 Order name: Blood Culture Adult (2) sg 08/14 02:42 Order name: CBC with Diff; Complete Time: 05:13 08/14 02:42 Order name: Ckmb; Complete Time: 05:13 08/14 02:42 Order name: CPK; Complete Time: 05:13 08/14 02:42 Order name: Lactate; Complete Time: 05:13 08/14 02:42 Order name: LFT's; Complete Time: 05:13 08/14 02:42 Order name: Lipase; Complete Time: 05:13 08/14 02:42 Order name: Procalcitonin; Complete Time: 05:13 08/14 02:42 Order name: Protime (+inr); Complete Time: 05:13 08/14 02:42 Order name: Ptt, Activated; Complete Time: 05:13 08/14 02:42 Order name: Troponin (emerg Dept Use Only); Complete Time: 05: 08/14 02:42 Order name: Urine Microscopic Only; Complete Time: 05:13 08/14 02:42 Order name: Chest Single View XRAY 08/14 02:42 Order name: Accucheck; Complete Time: 02:43 08/14 02:42 Order name: Cardiac monitoring; Complete Time: 02:43 08/14 02:42 Order name: EKG - Nurse/Tech; Complete Time: 03:18 08/14 02:42 Order name: IV Saline Lock - Large Bore; Complete Time: 02:43 08/14 02:42 Order name: Labs collected and sent; Complete Time: 02:43 08/14 02:42 Order name: O2 Per Protocol; Complete Time: 02:44 08/14 03:12 Order name: Manual Differential; Complete Time: 05:13 EDMS 08/14 04:10 Order name: Urine Dipstick--Ancillary (enter results); Complete Time: 05:13 bb 08/14 04:40 Order name: Urine Culture [facility] 08/14 05:22 Order name: Chest Abdomen Pelvis W Cont [facility] 08/14 07:58 Order name: EKG Electrocardiogram [facility] 08/14 02:42 Order name: O2 Sat Monitoring; Complete Time: 02:44 sg 08/14 02:42 Order name: Urine Dipstick-Ancillary (obtain specimen); Complete Time: 05:46 sg Administered Medications: 03:17 Drug: Tylenol 650 mg Route: PO; fu 07:02 Follow up: Response: Temperature is decreased fu 03:41 Drug: NS 0.9% (30 ml/kg) 30 ml/kg Route: IV; Rate: bolus; Site: left forearm; fu 05:00 Follow up: Response: No adverse reaction fu 08:12 Follow up: IV Status: Completed infusion; IV Intake: 1500ml bp 04:03 Drug: clonazePAM 0.5 mg Route: PO; fu 05:03 Follow up: Response: No adverse reaction fu 07:01 Drug: Cipro 400 mg Volume: 200 ml; Route: IVPB; Infused Over: 60 mins; Site: right fu forearm; 08:11 Follow up: IV Status: Completed infusion; IV Intake: 200ml bp Disposition: 08/14/20 07:01 Discharged to Home. Impression: Acute pyelonephritis left kidney. - Condition is Stable. - Prescriptions for Cipro 500 mg Oral Tablet - take 1 tablet by ORAL route every 12 hours for 7 days; 14 tablet. - Medication Reconciliation Form, Thank You Letter, Antibiotic Education, Prescription Opioid Use form. - Follow up: Private Physician; When: 1 week; Reason: Re-evaluation by your physician. - Problem is new. - Symptoms have improved. Signatures: Dispatcher [employer] Matty Gao RN Clint Andrews MD MD pkl Munoz, Edgar RN KASI em Naresh Tang RN RN fu Peltier, Brian RN bp Corrections: (The following items were deleted from the chart) 08:34 07:01 08/14/2020 07:01 Discharged to Home. Impression: Acute pyelonephritis left em kidney. Condition is Stable. Forms are Medication Reconciliation Form, Thank You Letter, Antibiotic Education, Prescription Opioid Use. Follow up: Private Physician; When: 1 week; Reason: Re-evaluation by your physician. Problem is new. Symptoms have improved. pkl
--- NOTE | 2020-08-14 07:02 | ER ---
Nurse's Notes [facility] Name: Kristin Meyers Age: 64 yrs Sex: Female : 1955 Arrival Date: 08/14/2020 Time: 02:20 Bed 8 Private MD: Diagnosis: Acute pyelonephritis left kidney Presentation: 08/14 02:36 Chief complaint: EMS states: pt complaining of fever, flank pain, reports nausea, cough sg that is productive with phlegm, pt states having had fever of 102 all day today. Coronavirus screen: Client denies travel out of the [place] in the last 14 days. chills, cough unrelated to allergies, fever, headache. Ebola Screen: Patient negative for fever greater than or equal to 101.5 degrees Fahrenheit, and additional compatible Ebola Virus Disease symptoms Patient denies exposure to infectious person. Patient denies travel to an Ebola-affected area in the 21 days before illness onset. No symptoms or risks identified at this time. Initial Sepsis Screen: Does the patient meet any 2 criteria? Temp <36.0*C (96.8*F)) or > 38.3*C (100.9*F). HR > 90 bpm. Yes Does the patient have a suspected source of infection? Yes: Productive cough/pneumonia. Risk Assessment: Do you want to hurt yourself or someone else? Patient reports no desire to harm self or others. Onset of symptoms was August 14, 2020. Care prior to arrival: Oxygen administered. via nasal cannula. Transition of care: patient was not received from another setting of care. 02:36 Acuity: ANAHI 3 sg 02:36 Method Of Arrival: EMS: [facility] sg 02:36 Note a code sepsis has been activated. sg Historical: - Allergies: 02:38 Keflex; sg - PMHx: 02:38 Back pain; chronic fatique; Fibromyalgia; osteoarthritis; sg - PSHx: 02:38 Hysterectomy; ruptured bladder repair; right femur fracture; sg - Immunization history:: Adult Immunizations not up to date. - Social history:: Smoking status: Patient denies any tobacco usage or history of. Screenin:40 Abuse screen: Denies threats or abuse. Denies injuries from another. Nutritional sg screening: No deficits noted. Tuberculosis screening: No symptoms or risk factors identified. Never had TB. 07:00 Fall Risk None identified. bp Assessment: 02:40 General: Appears in no apparent distress. uncomfortable, well groomed, well developed, sg well nourished, Behavior is cooperative, fussy. Pain: Complains of pain in low back area, left mid back, right mid back, chest, left hip and left leg Quality of pain is described as aching. Neuro: Level of Consciousness is alert, obeys commands, confused, Oriented to place, situation. Cardiovascular: Heart tones S1 S2 present Chest pain is denied. Respiratory: Airway is patent Respiratory effort is even, Respiratory pattern is regular, symmetrical. Respiratory: Reports cough that is productive, hacking. GI: No signs and/or symptoms were reported involving the gastrointestinal system. : Reports pain flank(s), urgency, urinary frequency. EENT: Reports nasal congestion. Derm: Skin is pink, warm \T\ dry. Skin temperature is hot. Musculoskeletal: Circulation, motion, and sensation intact. Range of motion: intact in all extremities. 03:30 Reassessment: Patient and/or family updated on plan of care and expected duration. Pain fu level reassessed. Patient is alert, oriented x 3, equal unlabored respirations, skin warm/dry/pink. 05:34 Reassessment: Patient and/or family updated on plan of care and expected duration. Pain fu level reassessed. Patient is alert, oriented x 3, equal unlabored respirations, skin warm/dry/pink. Patient states feeling better. 06:38 Reassessment: Patient and/or family updated on plan of care and expected duration. Pain fu level reassessed. Patient is alert, oriented x 3, equal unlabored respirations, skin warm/dry/pink. Patient transferred to bed 8. 07:00 Reassessment: RECD REPORT FROM JUAN VILLASEÑOR. 64YO WF P/W R FLANK PAIN, NOW DX WITH L bp PYELONEPHRITIS. D/C ON HOLD FOR IV ABX COMPLETION. 08:09 Reassessment: PT D/C HOME VIA W/C WITH FAMILY, DX WITH LEFT PYELONEPHRITIS. bp Vital Signs: 02:35 BP 106 / 58; Pulse 100; Resp 20; Temp 102; Pulse Ox 98% on R/A; sg 02:43 Weight 50.8 kg (R); sg 03:30 BP 90 / 60; Pulse 94; Resp 17; Pulse Ox 99% on 2 lpm NC; Pain 6/10; fu 04:34 BP 91 / 61; Pulse 83; Temp 98.9; Pulse Ox 100% on 2 lpm NC; Pain 0/10; fu 06:34 BP 96 / 68; Pulse 79; Resp 16; Temp 97.3; Pulse Ox 96% on 1 lpm NC; Pain 0/10; fu 07:00 BP 100 / 58; Pulse 81; Resp 17; Pulse Ox 96% ; bp 08:10 BP 93 / 62; Pulse 72; Resp 17; Temp 97.5; Pulse Ox 96% ; bp ED Course: 02:20 Patient arrived in ED. cl3 02:36 Arm band placed on. sg 02:38 Triage completed. sg 02:40 Initial lab(s) drawn, by me, sent to lab. Inserted saline lock: 20 gauge in right sg forearm, using aseptic technique. Blood collected. 02:42 Matty Denson, RN is Primary Nurse. sg 02:58 Clint Dotson MD is Attending Physician. pkl 03:00 First set of blood cultures drawn by me. sg 03:11 Naresh Tang, RN is Primary Nurse. fu 03:20 Chest Single View XRAY In Process Unspecified. EDMS 04:00 Second set of blood cultures drawn by me. fu 04:48 nasopharyngeal swab for COVID done and sent to lab. fu 06:11 Chest Abdomen Pelvis W Cont In Process Unspecified. EDMS 06:42 Patient has correct armband on for positive identification. Bed in low position. Side fu rails up X2. senior instrumentation engineer on. Pulse ox on. NIBP on. 08:10 No provider procedures requiring assistance completed. IV discontinued, intact, bp bleeding controlled, No redness/swelling at site. Pressure dressing applied. Administered Medications: 03:17 Drug: Tylenol 650 mg Route: PO; fu 07:02 Follow up: Response: Temperature is decreased fu 03:41 Drug: NS 0.9% (30 ml/kg) 30 ml/kg Route: IV; Rate: bolus; Site: left forearm; fu 05:00 Follow up: Response: No adverse reaction fu 08:12 Follow up: IV Status: Completed infusion; IV Intake: 1500ml bp 04:03 Drug: clonazePAM 0.5 mg Route: PO; fu 05:03 Follow up: Response: No adverse reaction fu 07:01 Drug: Cipro 400 mg Volume: 200 ml; Route: IVPB; Infused Over: 60 mins; Site: right fu forearm; 08:11 Follow up: IV Status: Completed infusion; IV Intake: 200ml bp Intake: 08:11 IV: 200ml; Total: 200ml. bp 08:12 IV: 1500ml; Total: 1700ml. bp Outcome: 07:01 Discharge ordered by MD. pkl 08:10 Discharged to home via wheelchair, with family. bp 08:10 Condition: stable 08:10 Discharge instructions given to patient, Instructed on discharge instructions, follow up and referral plans. medication usage, Demonstrated understanding of instructions, follow-up care, medications, Prescriptions given X 1. 08:34 Patient left the ED. em Addendum: 08/17/2020 18:04 Addendum: Culture Results: Positive urine culture. No further action required. Bacteria i w sensitive to prescribed antibiotic. 18:23 Addendum: COVID-19 Result: Negative result given to RN to notify pt. Attempted to i w contact pt regarding negative COVID-19 swab results. Left voice mail. 18:53 Addendum: COVID-19 Result: Negative result given to RN to notify pt. Notified pt of i w negative COVID 19 swab results. Pt advised that even with a negative test result they should remain in isolation until symptom free for 3 days without medication. Pt also advised to return to the ED for worsening symptoms. Signatures: Dispatcher [employer] Matty Gao RN RN sg Lam, Pin, MD MD pkl Munoz, Edgar, RN RN em Williams, Irene, RN RN Naresh Tang RN RN fu Peltier, Brian, RN RN bp Lewis, Charde cl3 Corrections: (The following items were deleted from the chart) 08/14 08:09 07:00 Reassessment: RECD REPORT FROM JUAN VILLASEÑOR. 64YO WF P/W R FLANK PAIN, NOW DX WITH bp R PYELONEPHRITIS. D/C ON HOLD FOR IV ABX COMPLETION bp 08:11 08:10 Discharge instructions given to patient, Instructed on discharge instructions, bp follow up and referral plans. medication usage, Demonstrated understanding of instructions, follow-up care, medications, Prescriptions given X 2, bp
[2020-08-14] MEDS ORDERED: CIPROFLOXACIN 400mg IV 400 MG/200 ML BAG IV ONE (07:07)
--- NOTE | 2020-08-14 07:41 | RAD REPORT ---
EXAM DESCRIPTION: RAD - Chest Single View - 08/14/2020 3:20 am CLINICAL HISTORY: SOB, fever, flank pain COMPARISON: July 21 TECHNIQUE: AP portable chest image was obtained 08/14/2020 3:20 am . FINDINGS: No new mass or consolidation of the lung parenchyma. Chronic interstitial opacification ag ain noted. Minimal edema or infiltrate are potentially masked by the chronic pattern. Heart and vasculature are normal. No measurable pleural effusion and no pneumothorax. No acute bony abnormality seen. No acute aortic findings suspected. IMPRESSION: No acute cardiopulmonary process. Prominent interstitial pattern is similar to comparison. Minimal interstitial edema or infiltrate cou ld potentially be masked.
--- NOTE | 2020-08-14 13:22 | RAD REPORT ---
EXAM DESCRIPTION: CT - Chest Abdomen Pelvis W Cont - 08/14/2020 7:16 am CLINICAL HISTORY: FEVER; FLANK PAIN COMPARISON: None Available. TECHNIQUE: CT of the chest, abdomen and pelvis performed following IV administration of iodinated co ntrast. FINDINGS: Chest: Thyroid: No abnormalities of the visualized thyroid. Great Vessels: Great vessels have normal anatomic configuration. Thoracic Aorta: Atherosclerotic calcification of normal caliber thoracic aorta. Pulmonary arteries: No central filling defects. Heart: Coronary artery atherosclerosis. No significant pericardial effusion or cardiomegaly. Lymph Nodes: No enlarged mediastinal lymph nodes identified. Esophagus: No abnormalities of the esophagus identified Other: No additional findings. Lungs: Centrilobular emphysematous change. Reticular nodular tree-in-bud opacities in the lung bases bilaterally, greater on the right than the left. No confluent airspace consolidation. Pleura: No pleural effusion or pneumothorax. Trachea/Airways: No abnormalities of the visualized trachea or airways. Abdomen: Liver: The liver has normal size and density. Dilation of the common bile duct measuring 1.2 cm. No s ignificant intrahepatic biliary dilatation.. Gallbladder: No calcified gallstones. Spleen, Pancreas, and Adrenal Glands: Minimal prominence of the pancreatic duct. The spleen and adr enal glands are unremarkable. Kidneys: Right renal cyst. Intermittent wedge-shaped regions of hypodensity involving the left carrington l cortex. Mild left renal perinephric fat stranding. No hydronephrosis or obstructing calculus identi fied. Vasculature: Aortoiliac atherosclerosis. IVC is unremarkable. Circumaortic left renal vein. The por tania vein is patent. The proximal visceral and renal arteries are patent. Stomach: The stomach and duodenum have normal course. Other: No free intraperitoneal air. Trace free fluid. Pelvis: Bladder: Mild wall thickening of the urinary bladder. Bowel: No dilated loops of large or small bowel. Appendix: Normal appendix. Pelvis: Prior hysterectomy. Bones: Prior right hip fixation. Levoconvex scoliosis of the lumbar spine. Mild multilevel degenerati ve endplate spondylosis and facet arthropathy throughout the spine. Mild compression deformity. Remot e fracture of the right inferior pubic ramus. Mild joint space narrowing of the hips. IMPRESSION: 1. Findings compatible with acute pyelonephritis of the left kidney. 2. Dilation of the common bile duct measuring 1.2 cm. No obstructing lesion identified on this study. If there is concern for biliary obstruction MRCP would provide additional characterization. 3. Mild wall thickening of the urinary bladder. This could be seen with cystitis. 4. Scattered tree-in-bud opacities in the lower lobes, greater on the right than left. This could be seen with infectious or inflammatory bronchiolitis. 5. Centrilobular emphysematous change. 6. Coronary artery atherosclerosis. This exam was performed according to our departmental dose-optimization program, which includes autom ated exposure control, adjustment of the mA and/or kV according to patient size and/or use of iterati ve reconstruction technique. Electronically signed by: Bruce Mariee 08/14/2020 6:38 AM CDT Due to temporary technical issues with the PACS/Fluency reporting system, reports are being signed by the in house radiologist without review as a courtesy to ensure prompt reporting. The interpreting r adiologist is fully responsible for the content of the report.
[2020-08-14 17:00] VITALS: O2SAT 96
[2020-08-14 17:03] VITALS: BP 93/62; TEMP 97.5
== END 2020-08-14 08:34 | disposition home or self-care (01) ==
LOC: ER 02:19
DX: N10 Acute pyelonephritis (principal); Z88.1 Allergy status to other antibiotic agents
CPT/HCPCS: 36415; 71045; 71260; 74177; 80048; 80076; 81003; 81015; 82150; 82550; 82553; 83605; 83690; 84145; 84484; 85025; 85610; 85730; 87040; 87077; 87086; 87088; 87186; 87205; 93005; 99285; J0744; J7030; J7040; Q9967; U0002

== ENCOUNTER 2022-03-22 14:02 | Inpatient (IN) | payer OTHER ==
[2022-03-22] MEDS ORDERED: MORPHINE 4 MG/ML SYR ONE ×2 (14:14→18:30)
[2022-03-22] MEDS ORDERED: NA CHLORIDE 0.9% 1,000 ML ONE (14:14)
[2022-03-22] MEDS ORDERED: FAMOTIDINE 20 MG/2 ML VIAL IV ONE (14:14)
[2022-03-22] MEDS ORDERED: ONDANSETRON 4 MG/2 ML VIAL ONE (14:14)
[2022-03-22 14:47] LABS: Hematocrit 43.8 % (36.0-45.0); Lymphocytes % 8.1 % (15.3-44.8); MPV 8.4 fL (7.6-11.3); RBC Red Blood Cell Count 4.74 M/uL (3.86-4.86)
[2022-03-22 16:45] LABS: ALT/SGPT 14 U/L (12-78); AST/SGOT 15 U/L (15-37); Albumin 3.2 g/dL (3.4-5.0); Alkaline Phosphatase 69 U/L (45-117); BUN Blood Urea Nitrogen 9 mg/dL (7-18); Bicarbonate 28 mmol/L (21-32); Bilirubin Total 0.3 mg/dL (0.2-1.0); Glucose Level 92 mg/dL (74-106); Lipase 75 U/L (73-393); Protein, Total 6.6 g/dL (6.4-8.2); Sodium Level 139 mmol/L (136-145)
--- NOTE | 2022-03-22 17:37 | RAD REPORT ---
EXAM DESCRIPTION: CTAbdomen Pelvis W Contrast - 03/22/2022 5:19 pm CLINICAL HISTORY: abd pain COMPARISON: CT ABD PELVIS W CONTRAST dated 07/19/2009; Chest Abdomen Pelvis W Cont dated 08/14/2020 TECHNIQUE: CT of the abdomen and pelvis was performed with contrast. All CT scans are performed using dose optimization technique as appropriate and may include automated exposure control or mA/KV adjustment according to patient size. FINDINGS: Lower chest: Emphysema in the lung bases. Coronary artery calcifications. Small hiatal her aleksandr. Liver: No acute abnormality or suspicious lesions. Biliary: Extrahepatic biliary ductal dilatation is unchanged measuring approximately 11 millimeters. Stomach: No significant focal abnormality. Duodenum: No significant focal abnormality. Pancreas: No significant abnormality. Spleen: No significant abnormality. Adrenal: No suspicious lesions. Kidney/ureter: No hydronephrosis. No renal calculi. Too small to characterize and/or benign appearing renal lesions are noted. Retroperitoneum: No retroperitoneal adenopathy. Vascular: No aneurysm. Atherosclerosis. Bowel: Large colonic stool burden.. Distended small bowel centrally but with smooth transition point to nondilated ileum. No appendix identified. No secondary signs of acute appendicitis. Peritoneum: Small volume of ascites Bladder: Grossly unremarkable. Reproductive: No adnexal masses. Bones: No acute fracture. Intramedullary alem right femur. Chronic appearing L1 and L2 compression fra ctures. Other: n/a IMPRESSION: Dilated small bowel centrally may reflect ileus or partial small bowel obstruction. No h igh-grade obstruction identified. Large colonic stool burden suggesting constipation. Small volume of abdominopelvic free fluid which is abnormal but nonspecific.
--- NOTE | 2022-03-22 17:42 | ER ---
Nurse's Notes [facility] Name: Kristin Meyers Age: 66 yrs Sex: Female : 1955 Arrival Date: 03/22/2022 Time: 14:03 Bed 7 Private MD: Diagnosis: Partial Small Bowel Obstruction;Ileus, unspecified;Nausea with vomiting, unspecified Presentation: 03/22 14:03 Chief complaint: EMS states: Pt c/o n/v and abdominal distention and cramping, states ph that symptoms began last night after eating BBQ sandwich and potato salad. 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 Coronavirus screen: Vaccine status: Patient reports receiving the 2nd dose of the covid vaccine. Ebola Screen: No symptoms or risks identified at this time. Initial Sepsis Screen: Does the patient meet any 2 criteria? No. Patient's initial sepsis screen is negative. Does the patient have a suspected source of infection? No. Patient's initial sepsis screen is negative. Risk Assessment: Do you want to hurt yourself or someone else? Patient reports no desire to harm self or others. Onset of symptoms was March 22, 2022. 14:03 Method Of Arrival: EMS: [facility] 14:03 Acuity: ANAHI 3 ph Triage Assessment: 14:06 General: Appears in no apparent distress. uncomfortable, Behavior is calm, cooperative, ph appropriate for age, Reports chills for fever for. Pain: Complains of pain in abdomen. Neuro: Level of Consciousness is awake, alert, obeys commands, Oriented to person, place, time, situation. Cardiovascular: Capillary refill < 3 seconds in bilateral fingers Patient's skin is warm and dry. Respiratory: Airway is patent Respiratory effort is even, unlabored. GI: Abdomen is non-distended, Reports lower abdominal pain, upper abdominal pain, bloating, cramping, nausea, vomiting. : No signs and/or symptoms were reported regarding the genitourinary system. Derm: Skin is intact, is healthy with good turgor, Skin is pink, warm \T\ dry. Musculoskeletal: Circulation, motion, and sensation intact. Range of motion: intact in all extremities. Historical: - Allergies: 14:05 Keflex; ph - PMHx: 14:05 Back pain; chronic fatique; Chronic pain; Fibromyalgia; osteoarthritis; ph - Immunization history:: Adult Immunizations up to date. - Social history:: Smoking status: Patient reports the use of cigarette tobacco products, smokes one-half pack cigarettes per day. - Family history:: not pertinent. - Hospitalizations: : No recent hospitalization is reported. Screenin:07 Abuse screen: Denies threats or abuse. Denies injuries from another. Nutritional ph screening: No deficits noted. Tuberculosis screening: No symptoms or risk factors identified. Fall Risk None identified. Assessment: 14:10 General: SEE TRIAGE NOTE. bp 15:41 Reassessment: No changes from previously documented assessment. Patient and/or family bp updated on plan of care and expected duration. Pain level reassessed. 16:39 Reassessment: Patient appears in no apparent distress at this time. Patient and/or ph family updated on plan of care and expected duration. Pain level reassessed. Patient is alert, oriented x 3, equal unlabored respirations, skin warm/dry/pink. Awaiting lab results. 17:30 Reassessment: Patient appears in no apparent distress at this time. Patient and/or jb4 family updated on plan of care and expected duration. Pain level reassessed. Patient is alert, oriented x 3, equal unlabored respirations, skin warm/dry/pink. 18:41 Reassessment: Patient appears in no apparent distress at this time. Patient and/or jb4 family updated on plan of care and expected duration. Pain level reassessed. Patient is alert, oriented x 3, equal unlabored respirations, skin warm/dry/pink. 19:35 Reassessment: Patient appears in no apparent distress at this time. Patient states as6 symptoms have improved. Vital Signs: 14:03 BP 166 / 84; Pulse 86; Resp 18; Temp 97.8; Pulse Ox 100% on R/A; Weight 50.8 kg; Height ph 5 ft. 5 in. (165.10 cm); Pain 10/10; 15:40 BP 135 / 76; Pulse 78; Resp 17; Pulse Ox 96% ; bp 16:40 BP 118 / 71; Pulse 78; Resp 18; Pulse Ox 94% on R/A; ph 18:15 BP 147 / 79; Pulse 79; Resp 18; Pulse Ox 97% on R/A; jb4 19:35 BP 129 / 79; Pulse 67; Resp 18 S; Pulse Ox 95% on R/A; as6 14:03 Body Mass Index 18.64 (50.80 kg, 165.10 cm) ph ED Course: 14:03 Patient arrived in ED. ph 14:04 Epi Love MD is Attending Physician. rn 14:05 Triage completed. ph 14:06 Arm band placed on Patient placed in an exam room, in a wheelchair. ph 14:07 Patient has correct armband on for positive identification. Bed in low position. Call ph light in reach. Side rails up X 1. Pulse ox on. NIBP on. Door closed. Noise minimized. Warm blanket given. 14:10 Maintain EMS IV. Dressing intact. Good blood return noted. Site clean \T\ dry. Gauge \T\ bp site: 22 G R WRIST. 14:36 Cathryn Capps RN is Primary Nurse. ph 17:01 No provider procedures requiring assistance completed. ph 17:21 Abdomen In Process Unspecified. EDMS 17:41 Navin Hurley MD is Hospitalizing Provider. rn 18:40 Ty Love MD is Hospitalizing Provider. la1 20:41 Patient admitted, IV remains in place. as6 Administered Medications: 14:25 Drug: Zofran (Ondansetron) 4 mg Route: IVP; Site: right wrist; ph 15:00 Follow up: Response: No adverse reaction bp 14:27 Drug: morphine 4 mg Route: IVP; Site: right wrist; ph 15:01 Follow up: Response: Pain is decreased bp 14:36 Drug: NS 0.9% 1000 ml Route: IV; Rate: 1000 ml; Site: right wrist; ph 19:04 Follow up: IV Status: Completed infusion; IV Intake: 1000ml bp 14:37 Drug: Pepcid (famotidine) 20 mg Route: IVP; Site: right wrist; ph 15:01 Follow up: Response: No adverse reaction bp 18:21 Drug: Cipro (ciprofloxacin) 400 mg Volume: 200 ml; Route: IVPB; Infused Over: 60 mins; jb4 Site: right forearm; 19:35 Follow up: Response: No adverse reaction; IV Status: Completed infusion; IV Intake: as6 200ml 18:21 Drug: Flagyl (metroNIDAZOLE) 500 mg Volume: 100 ml; Route: IVPB; Rate: 200 ml/hr; jb4 Infused Over: 30 mins; Site: right forearm; 19:36 Follow up: Response: No adverse reaction; IV Status: Completed infusion; IV Intake: as6 100ml 18:30 Drug: morphine 4 mg Route: IVP; Site: right forearm; jb4 19:36 Follow up: Response: No adverse reaction; RASS: Alert and Calm (0) as6 Intake: 19:04 IV: 1000ml; Total: 1000ml. bp 19:35 IV: 200ml; Total: 1200ml. as6 19:36 IV: 100ml; Total: 1300ml. as6 Outcome: 17:42 Decision to Hospitalize by Provider. rn 20:40 Admitted to Med/surg accompanied by nurse, via stretcher, room 206, with chart, Report as6 called to Naresh VILLASEÑOR 20:40 Condition: stable 20:40 Instructed on the need for admit. 20:41 Patient left the ED. as6 Signatures: Dispatcher [employer] EDMS Epi Love MD MD rn Ned Fuentes, NUCLEAR PHYSICIST-C NUCLEAR PHYSICIST-Cla1 Cathryn Capps, RN RN Benoit Mcfadden, RN RN jb4 Agustin Boland, RN RN Yoel Lobato, RN RN as6
--- NOTE | 2022-03-22 17:42 | EDPHYS ---
Physician Documentation [facility] Name: Kristin Meyers Age: 66 yrs Sex: Female : 1955 Arrival Date: 03/22/2022 Time: 14:03 Bed 7 Private MD: ED Physician Epi Love HPI: 03/22 14:14 This 66 yrs old Female presents to ER via EMS with complaints of Abdominal Pain. rn 14:14 The patient presents with abdominal pain in the periumbilical area. Onset: The rn symptoms/episode began/occurred this morning. The symptoms do not radiate. Associated signs and symptoms: Pertinent positives: nausea and vomiting, Pertinent negatives: blood in stools, diarrhea, fever. The symptoms are described as crampy. Modifying factors: The symptoms are alleviated by nothing, the symptoms are aggravated by touching the area. Severity of pain: At its worst the pain was moderate in the emergency department the pain is unchanged. The patient has not experienced similar symptoms in the past. The patient has not recently seen a physician. Reports abd pain, nausea/vomiting, began this AM. Ate BBQ sandwich and potato salad last night. Reports mainly vomiting, about 3-4 episodes, no blood, no diarrhea. . Historical: - Allergies: 14:05 Keflex; ph - PMHx: 14:05 Back pain; chronic fatique; Chronic pain; Fibromyalgia; osteoarthritis; ph - Immunization history:: Adult Immunizations up to date. - Social history:: Smoking status: Patient reports the use of cigarette tobacco products, smokes one-half pack cigarettes per day. - Family history:: not pertinent. - Hospitalizations: : No recent hospitalization is reported. ROS: 14:14 Constitutional: Negative for fever, chills, and weight loss, Eyes: Negative for injury, rn pain, redness, and discharge, Neck: Negative for injury, pain, and swelling, Cardiovascular: Negative for chest pain, palpitations, and edema, Respiratory: Negative for shortness of breath, cough, wheezing, and pleuritic chest pain, Abdomen/GI: Negative for diarrhea, and constipation, Back: Negative for injury and pain, : Negative for injury, bleeding, discharge, and swelling, MS/Extremity: Negative for injury and deformity, Skin: Negative for injury, rash, and discoloration, Neuro: Negative for headache, weakness, numbness, tingling, and seizure. Exam: 14:14 Constitutional: This is a well developed, well nourished patient who is awake, alert, rn appears uncomfortable Head/Face: Normocephalic, atraumatic. Eyes: Periorbital areas with no swelling, redness, or edema. ENT: dry MM Cardiovascular: Regular rate and rhythm. No pulse deficits. Respiratory: No increased work of breathing, no retractions or nasal flaring. Abdomen/GI: soft, + tender periumbilical and bilateral lower quadrants, no rebound, + guarding Skin: Warm, dry MS/ Extremity: Pulses equal, no cyanosis. Neuro: Awake and alert, GCS 15 Vital Signs: 14:03 BP 166 / 84; Pulse 86; Resp 18; Temp 97.8; Pulse Ox 100% on R/A; Weight 50.8 kg; Height ph 5 ft. 5 in. (165.10 cm); Pain 10/10; 15:40 BP 135 / 76; Pulse 78; Resp 17; Pulse Ox 96% ; bp 16:40 BP 118 / 71; Pulse 78; Resp 18; Pulse Ox 94% on R/A; ph 18:15 BP 147 / 79; Pulse 79; Resp 18; Pulse Ox 97% on R/A; jb4 19:35 BP 129 / 79; Pulse 67; Resp 18 S; Pulse Ox 95% on R/A; as6 14:03 Body Mass Index 18.64 (50.80 kg, 165.10 cm) ph MDM: 14:04 Patient medically screened. rn 17:40 Differential diagnosis: appendicitis, bowel obstruction, Cholelithiasis, rn diverticulitis, gastritis, non-specific abd pain, pancreatitis, Peptic Ulcer Disease, Peritonitis, Pyelonephritis, colitis, enteritis. Data reviewed: vital signs, nurses notes, lab test result(s), radiologic studies, CT scan, and as a result, I will admit patient. Counseling: I had a detailed discussion with the patient and/or guardian regarding: the historical points, exam findings, and any diagnostic results supporting the discharge/admit diagnosis, lab results, radiology results, the need for further work-up and treatment in the hospital. Response to treatment: the patient's symptoms have mildly improved after treatment, and as a result, I will admit patient. Admission orders: after a detailed discussion of the patient's condition and case, the admit orders are written by me. 03/22 14:04 Order name: CBC with Diff; Complete Time: 14:52 rn 03/22 14:04 Order name: CMP; Complete Time: 17:05 rn 03/22 14:04 Order name: Lipase; Complete Time: 17:05 rn 03/22 18:45 Order name: COVID-19 SARS RT PCR (Document "Date of Onset" if Symptomatic) la1 03/22 19:37 Order name: SARS-COV-2 RT PCR EDMS 03/22 14:42 Order name: Abdomen ; Complete Time: 17:39 EDMS 03/22 14:04 Order name: IV Saline Lock; Complete Time: 14:37 rn 03/22 14:04 Order name: Labs collected and sent; Complete Time: 14:37 rn 03/22 14:52 Order name: Labs - recollect needed: recollect green top; Complete Time: 15:07 bd 03/22 15:31 Order name: Labs - recollect needed: recollect green top; Complete Time: 16:24 bd Administered Medications: 14:25 Drug: Zofran (Ondansetron) 4 mg Route: IVP; Site: right wrist; ph 15:00 Follow up: Response: No adverse reaction bp 14:27 Drug: morphine 4 mg Route: IVP; Site: right wrist; ph 15:01 Follow up: Response: Pain is decreased bp 14:36 Drug: NS 0.9% 1000 ml Route: IV; Rate: 1000 ml; Site: right wrist; ph 19:04 Follow up: IV Status: Completed infusion; IV Intake: 1000ml bp 14:37 Drug: Pepcid (famotidine) 20 mg Route: IVP; Site: right wrist; ph 15:01 Follow up: Response: No adverse reaction bp 18:21 Drug: Cipro (ciprofloxacin) 400 mg Volume: 200 ml; Route: IVPB; Infused Over: 60 mins; jb4 Site: right forearm; 19:35 Follow up: Response: No adverse reaction; IV Status: Completed infusion; IV Intake: as6 200ml 18:21 Drug: Flagyl (metroNIDAZOLE) 500 mg Volume: 100 ml; Route: IVPB; Rate: 200 ml/hr; jb4 Infused Over: 30 mins; Site: right forearm; 19:36 Follow up: Response: No adverse reaction; IV Status: Completed infusion; IV Intake: as6 100ml 18:30 Drug: morphine 4 mg Route: IVP; Site: right forearm; jb4 19:36 Follow up: Response: No adverse reaction; RASS: Alert and Calm (0) as6 Disposition Summary: 03/22/22 17:42 Hospitalization Ordered Hospitalization Status: Inpatient Admission rn [facility] rn Condition: Stable rn Problem: new rn Symptoms: have improved rn Bed/Room Type: Standard rn Provider: Ty Love(03/22/22 18:40) betty Room Assignment: [facility](03/22/22 20:03) Diagnosis - Partial Small Bowel Obstruction rn - Ileus, unspecified rn - Nausea with vomiting, unspecified rn Forms: - Medication Reconciliation Form rn - SBAR form rn Signatures: Dispatcher [employer] EDMS Linsey Carter Martha RN RN Epi Love MD MD rn Ned Fuentes, PATHOLOGY TECHNOLOGIST-C PATHOLOGY TECHNOLOGIST-[facility] Cathryn Capps RN RN Benoit Burdick, RN RN jb4 Agustin Boland RN bp Yoel Perales RN as6 Corrections: (The following items were deleted from the chart) 18:40 17:42 Navin Hurley rn la1 20:03 17:42 rn warren
[2022-03-22] MEDS ORDERED: METRONIDAZOLE 500mg IVPB 500 MG/100 ML BAG IV ONE (18:17)
[2022-03-22] MEDS ORDERED: CIPROFLOXACIN 400mg IV 400 MG/200 ML BAG IV ONE (18:17)
--- NOTE | 2022-03-22 19:07 | P.HP ---
Certification for Inpatient Patient admitted to: Inpatient With expected LOS: >2 Midnights Patient will require the following post-hospital care: None Practitioner: I am a practitioner with admitting privileges, knowledge of patient current condition, hospital course, and medical plan of care. Services: Services provided to patient in accordance with Admission requirements found in Title 42 Section 412.3 of the Code of Federal Regulations Patient History Date of Service: 03/22/22 Reason for admission: SBO History of Present Illness: 66-year-old female with history of fibromyalgia, osteoarthritis, GERD and chronic pain presents emergency department complaints of abdominal pain, vomiting reports her symptoms began last night around 2 AM she reports 1 episode of vomiting around 5 AM had small bowel movement around that time as well. Denies any history of bowel obstruction she has had multiple abdominal surgeries including hysterectomy and bladder reconstruction. Her labs revealed mild leukocytosis, CT demonstrated dilated small bowel centrally may reflect ileus or partial small bowel obstruction no high-grade obstruction identified large colonic stool burden suggesting constipation small volume of abdominal pelvic free fluid which is abnormal with specific. Patient was started on IV antibiotics ED provider wishes to admit for further evaluation management. Allergies cephalexin monohydrate [From Keflex] Adverse Reaction (Intermediate, Verified 06/07/12 17:59) FAINT - Past Medical/Surgical History -: HTN -: HLD -: COPD -: GERD -: Fibromyalgia -: Chronic Pain -: Hysterectomy -: Bladder reconstruction -: Appendectomy Psychosocial/ Personal History: Pt lives at home with family - Family History Family History: Reviewed- Non-Contributory - Social History Smoking Status: Current every day smoker Counseled patient to stop smoking for: less than 10 minutes Smoking therapy provided: No (Pt declined) Alcohol use: No CD- Drugs: No Caffeine use: Yes Place of Residence: Home Review of Systems 10-point ROS is otherwise unremarkable Gastrointestinal: Nausea, Vomiting, Abdominal Pain, Constipation, As per HPI Physical Examination - Physical Exam General: Alert, In no apparent distress, Oriented x3 HEENT: Atraumatic, PERRLA, Mucous membr. moist/pink, EOMI, Sclerae nonicteric Neck: Supple, 2+ carotid pulse no bruit, No LAD, Without JVD or thyroid abnormality Respiratory: Clear to auscultation bilaterally, Normal air movement Cardiovascular: Regular rate/rhythm, Normal S1 S2 Gastrointestinal: Hypoactive, Tenderness (Mild to moderate generalized abdominal tenderness) Musculoskeletal: No tenderness Integumentary: No rashes Neurological: Normal speech, Normal strength at 5/5 x4 extr, Normal tone, Normal affect - Studies Laboratory Data (last 24 hrs) 03/22/22 16:13: Sodium 139, Potassium 4.0, BUN 9, Creatinine 0.41 L, Glucose 92, Total Bilirubin 0.3, AST 15, ALT 14, Alkaline Phosphatase 69, Lipase 75 03/22/22 14:35: WBC 11.8 H, Hgb 14.6, Hct 43.8, Plt Count 314 Assessment and Plan - Plan Assessment: Abdominal pain, vomiting Partial SBO vs. Illeus Chronic pain/Fibromyalgia/OA GERD Tobacco abuse Plan: Abdominal pain, vomiting Partial SBO vs. Illeus: NPO, IVF, IV abx, KUB in AM, PRN pain meds and antiemetics. Surgical consult in place. NGT if pt has worsening pain, distension, or vomiting. Chronic pain/Fibromyalgia/OA: Hold oral meds at this time, PRN pain meds. GERD: IV protonix Tobacco abuse : Counseled on cessation, offered nicoderm patch-declined DVT PPX: Lovenox Code status: Full Discharge Plan: Home Plan to discharge in: 72 Hours - Advance Directives Does patient have a Living Will: No Does patient have a Durable POA for Healthcare: No - Code Status/Comfort Care Code Status Assessed: Yes (Full code ) Critical Care: No Time Spent Managing Pts Care (In Minutes): 55
[2022-03-22] MEDS ORDERED: ONDANSETRON 4 MG/2 ML VIAL IV PRN (20:40)
[2022-03-22] MEDS: NA CHLORIDE 0.9% 1,000 ML IV SCH (20:49)
[2022-03-22] MEDS: HYDROMORPHONE HCL 1 MG/ML INJ IV PRN (20:51)
[2022-03-22 22:30] VITALS: BMI 18.6
[2022-03-23] MEDS: METRONIDAZOLE 500mg IVPB 500 MG/100 ML BAG IV SCH ×3 (00:43→17:56)
[2022-03-23] MEDS: HYDROMORPHONE HCL 1 MG/ML INJ IV PRN ×5 (00:48→23:47)
[2022-03-23] MEDS: CIPROFLOXACIN 400mg IV 400 MG/200 ML BAG IV SCH ×2 (05:41→17:56)
[2022-03-23] MEDS: NA CHLORIDE 0.9% 1,000 ML IV SCH ×2 (05:43→17:56)
--- NOTE | 2022-03-23 06:22 | P.PN ---
Date of Service: 03/23/22 Subjective: pain less severe, but receiving IV medication feels less frequent attacks pain comes in waves no flatus this morning ROS: 10 point ROS as noted above, otherwise negative Physical exam GEN: Alert, oriented HEENT: Normal conjunctiva, sclera anicteric CV: Regular rate and rhythm, no edema Pulm: Non-labored respirations on room air ABD: moderate diffuse tenderness, soft Neuro: Normal speech, normal affect Problem List partial SBO vs Ileus Chronic pain, fibromyalgia,'s arthritis GERD Nicotine dependence N.p.o., IV fluids Continue IV antibiotics KUB ordered for this morning IV pain medications as needed. Patient on chronic pain medication, LINUX SERVER ENGINEER reviewed, no red flags General surgery consulted Low threshold for NG tube if worsens VTE: lovenox Code: full Dispo: home, 2-3 days Time Spent Managing Pts Care (In Minutes): 35
[2022-03-23 06:24] LABS: Absolute Lymphocytes (CBC) 1.2 K/uL (0.7-4.9); Hematocrit 36.7 % (36.0-45.0); Lymphocytes % 14.8 % (15.3-44.8); MPV 8.2 fL (7.6-11.3); RBC Red Blood Cell Count 3.95 M/uL (3.86-4.86)
[2022-03-23 06:26] LABS: ALT/SGPT 15 U/L (12-78); AST/SGOT 20 U/L (15-37); Albumin 2.9 g/dL (3.4-5.0); Alkaline Phosphatase 62 U/L (45-117); BUN Blood Urea Nitrogen 8 mg/dL (7-18); Bicarbonate 26 mmol/L (21-32); Bilirubin Total 0.4 mg/dL (0.2-1.0); Glucose Level 82 mg/dL (74-106); Potassium 3.4 mmol/L (3.5-5.1); Protein, Total 5.9 g/dL (6.4-8.2); Sodium Level 139 mmol/L (136-145)
[2022-03-23 07:40] LABS: Urine Appearance Cloudy (Clear); Urine Bilirubin Negative (Negative); Urine Blood Trace-intact (Negative); Urine Color Yellow (Yellow); Urine Glucose Negative (Negative); Urine Protein Negative (Negative); Urine Specific Gravity 1.025 (1.005-1.030); Urine Urobilinogen 0.2 mg/dL (0.2-1.0)
[2022-03-23 07:51] LABS: Urine Bacteria 20-50 /HPF (<20); Urine Microscopic Reflex ORDER UMIC; Urine Mucus MOD /HPF (NONE SEEN); Urine RBC <5 /HPF (NONE SEEN)
--- NOTE | 2022-03-23 07:51 | RAD REPORT ---
EXAM DESCRIPTION: RAD - Abdomen 1 View (KUB) - 03/23/2022 5:37 am CLINICAL HISTORY: eval sbo COMPARISON: Abdomen Pelvis W Contrast dated 03/22/2022 FINDINGS: Moderate stool is again noted in the colon. Single dilated loop of small bowel in the righ t upper quadrant but the remaining small bowel loops are distended but nondilated. Intramedullary alem and cephalomedullary screw in the right hip. Contrast is present within the bladder. No fractures ar e seen. Remote right obturator ring fracture. IMPRESSION: The bowel gas pattern is overall nonobstructive though a mild ileus is difficult to excl ude.
[2022-03-23] MEDS ORDERED: PNEUMOCOCCAL VACCINE 0.5 ML IMVAC ONE (08:00)
[2022-03-23] MEDS: ENOXAPARIN 40 MG/0.4 ML SQ SCH (08:57)
--- NOTE | 2022-03-23 17:24 | CON ---
Date of Consultation: 03/23/2022 History Of Present Illness: The patient is a 66-year-old female with a history of fibromya lgia, osteoarthritis, GERD, chronic pain, presented to the emergency department with complaints of ab dominal pain and vomiting. Reports symptoms began last night at 2 a.m., 1 episode of vomiting at 5 a .m. Had a bowel movement as well. She states that she had significant improvement of her symptoms s sung being in the hospital. She has a history of exploratory laparotomy for traumatic bladder ruptur e before in the past and significant hemorrhage. She states that she is not aware of any sick contac ts, recent travel, or new food exposures. She has had no other history of bowel obstructions in the past. Past Medical History: Significant for hyperlipidemia, hypertension, COPD, GERD, fibromyalgia, chroni c pain. Past Surgical History: Includes appendectomy, bladder reconstruction for traumatic bladder rupture, hysterectomy. Allergies: TO KEFLEX. Social History: She lives at home with her family. The patient does have a positive tobacco history . She smokes about a pack a day for multiple years. She denies alcohol or recreational drug use. Review of Systems: Ten-point review of systems other than HPI, she had nausea, vomiting, crampy abdominal pain, constipa tion. Physical Examination: Vital Signs: At the time of my examination; her vital signs were a BMI of 18.6. Her blood pressure was 139/76, temperature 98.6, pulse is 71, respirations 16, O2 sats are 95% on room air. General: She is awake, alert, oriented. Psychiatric: She is appropriate. Conversive. HEENT: Normocephalic. Sclerae anicteric. Mucous membranes are moist. Oropharynx clear. Neck: Supple. No JVD. Chest: Normal expansion and excursion. Cardiovascular: Regular rate and rhythm. Pulmonary: Clear to auscultation bilaterally. Abdomen: Soft with mild global tenderness to palpation. She has a well-healed midline laparotomy sc ar. She had no peritonitis at this time. She had tympany to her abdomen consistent with gaseous dis tention. Extremities: No clubbing, cyanosis, or edema. Skin: Warm and dry. Laboratory Data: Reveals a white blood count of 8.3, hemoglobin 12.4, hematocrit 36.7, platelet coun t was 265. Her neutrophils were 71%. Her sodium was 139, potassium 3.4, chloride 107, carbon dioxid e 26, BUN 8, creatinine was 0.29. Her total bilirubin was 0.4, direct bili was not measured. AST 20 , ALT 15, alkaline phosphatase is 62, lipase 75 on admission. She had positive UTI on admission with greater than 50 white blood cells, 20 to 50 bacteria, and 5-10 squames. She had imaging performed, which included a CT of the abdomen and pelvis, officially read as dilated small bowel may reflect ileus or partial small bowel obstruction, no high-grade obstruction identified, large colonic stool burden suggests constipation fluid in the abdomen which is abnormal, but nonspecific . Assessment And Plan: This is a 66-year-old female, who comes in with signs and symptoms of early par tial small bowel obstruction versus enteritis. 1.IV fluid hydration. 2.N.p.o. status. 3.Serial abdominal exams. 4.Continue medical management for other concomitant medical issues. 5.I explained risks, benefits, and alternatives of nonoperative versus operative management. We jenny l proceed with nonoperative management initially. The patient will require endoscopy after her disch arge as an outpatient if she has not had one in a regular interval. The patient agrees to proceed as indicated. Thank you for this interesting consult. CHRISTOPHER/RODNEY Voice ID: [id number] Report ID: [id number]
[2022-03-24] MEDS: METRONIDAZOLE 500mg IVPB 500 MG/100 ML BAG IV SCH ×2 (00:44→08:04)
[2022-03-24] MEDS: NA CHLORIDE 0.9% 1,000 ML IV SCH (02:40)
[2022-03-24 05:39] LABS: Absolute Lymphocytes (CBC) 1.1 K/uL (0.7-4.9); Hematocrit 38.6 % (36.0-45.0); Lymphocytes % 9.6 % (15.3-44.8); MPV 8.1 fL (7.6-11.3); RBC Red Blood Cell Count 4.19 M/uL (3.86-4.86)
[2022-03-24] MEDS: CIPROFLOXACIN 400mg IV 400 MG/200 ML BAG IV SCH (06:00)
[2022-03-24 06:03] LABS: ALT/SGPT 12 U/L (12-78); AST/SGOT 21 U/L (15-37); Albumin 3.1 g/dL (3.4-5.0); Alkaline Phosphatase 72 U/L (45-117); BUN Blood Urea Nitrogen 8 mg/dL (7-18); Bicarbonate 25 mmol/L (21-32); Bilirubin Total 0.4 mg/dL (0.2-1.0); Protein, Total 6.3 g/dL (6.4-8.2); Sodium Level 137 mmol/L (136-145)
--- NOTE | 2022-03-24 06:03 | P.PN ---
Date of Service: 03/24/22 Subjective: Improving was pain less severe, less frequent No nausea/vomiting, passed flatus overnight Dry mouth ROS: 10 point ROS as noted above, otherwise negative Physical exam GEN: Alert, oriented HEENT: Normal conjunctiva, sclera anicteric CV: Regular rate and rhythm, no edema Pulm: Non-labored respirations on room air ABD: soft, mild tenderness throughout Neuro: Normal speech, normal affect Problem List partial SBO vs Ileus Chronic pain, fibromyalgia,'s arthritis GERD Nicotine dependence Chronic hypoglycemia N.p.o., IV fluids Patient noted be hypoglycemic this morning, asymptomatic. States that she gets hypoglycemic very easily. Forgot to let us know. Normal saline switched to D5 half NS. KUB ordered for this morning, possibly to advance ice chips later today UA with bacteruria, patient denies symptoms of UTI, f/u culture Continue IV antibiotics IV pain medications as needed. Patient on chronic pain medication, DRILLER OPERATOR reviewed, no red flags General surgery consulted VTE: lovenox Code: full Dispo: home, 1-2 days improving slowly Time Spent Managing Pts Care (In Minutes): 35
[2022-03-24] MEDS: HYDROMORPHONE HCL 1 MG/ML INJ IV PRN ×4 (06:04→21:50)
[2022-03-24 06:05] LABS: Glucose Level 49 mg/dL (74-106); Potassium 2.9 mmol/L (3.5-5.1)
[2022-03-24] MEDS ORDERED: D50W 25 GM/50 ML SYRINGE IV PRN (06:13)
[2022-03-24] MEDS ORDERED: D50W 25 GM/50 ML SYRINGE IV ONE (06:13)
[2022-03-24] MEDS ORDERED: D10W 250 ML IV SCH (07:00)
[2022-03-24] MEDS: KCL 20 MEQ/100 mL IVPB 20 MEQ/100 ML BAG IV SCH ×3 (08:03→12:05)
[2022-03-24] MEDS: D5.45NS W/KCL 20MEQ 20 MEQ/1,000 ML BAG IV SCH ×2 (08:04→16:23)
[2022-03-24] MEDS: ENOXAPARIN 40 MG/0.4 ML SQ SCH (08:04)
--- NOTE | 2022-03-24 09:00 | RAD REPORT ---
EXAM DESCRIPTION: RAD - Abdomen 1 View (KUB) - 03/24/2022 8:54 am CLINICAL HISTORY: Abdomen pain. FINDINGS: The bowel gas pattern is unremarkable. A large amount of stool is present throughout the colon. Old pelvic fractures are noted
[2022-03-24] MEDS ORDERED: FLEET ENEMA ADULT PR ONE (09:24)
[2022-03-24] MEDS: PIPER TAZO 3.375 GM in NA CHLORIDE 0.9% 100 ML IV SCH ×2 (10:15→16:23)
[2022-03-24 16:30] LABS: BUN Blood Urea Nitrogen 5 mg/dL (7-18); Bicarbonate 28 mmol/L (21-32); Glucose Level 87 mg/dL (74-106); Potassium 3.6 mmol/L (3.5-5.1); Sodium Level 137 mmol/L (136-145)
--- NOTE | 2022-03-24 18:36 | P.PN ---
Subjective Date of Service: 03/24/22 Chief Complaint: SBO Subjective: Improving (Patient feels much better, no BM, no gas, no nausea, pain improved, but not resolved) Physical Examination - Vital Signs Temperature: 98.5 F Blood Pressure: 166/78 Pulse: 72 Respirations: 16 Pulse Ox (%): 95 - Physical Exam General: Alert, In no apparent distress, Cooperative Gastrointestinal: Other (soft, mild global TTP, mild distention, mild tympany, no peritonitis) Assessment And Plan - Current Problems (Diagnosis) (1) Small bowel obstruction Current Visit: Yes Status: Acute Plan: - continue NPO - Serial exams - KUB reviewed - continue medical management - ambulate
[2022-03-25] MEDS ORDERED: PIPERACIL/TAZO 3.375 GM VIAL IV ONE (00:06)
[2022-03-25] MEDS ORDERED: NA CHLORIDE 0.9% 100 ML ONE (00:45)
[2022-03-25] MEDS: PIPER TAZO 3.375 GM in NA CHLORIDE 0.9% 100 ML IV SCH ×2 (00:52→09:10)
[2022-03-25] MEDS: D5.45NS W/KCL 20MEQ 20 MEQ/1,000 ML BAG IV SCH (03:00)
[2022-03-25] MEDS: HYDROMORPHONE HCL 1 MG/ML INJ IV PRN ×3 (03:06→14:13)
[2022-03-25 06:02] LABS: Absolute Lymphocytes (CBC) 0.9 K/uL (0.7-4.9); Hematocrit 36.9 % (36.0-45.0); MPV 8.2 fL (7.6-11.3); RBC Red Blood Cell Count 4.04 M/uL (3.86-4.86)
[2022-03-25 06:22] LABS: ALT/SGPT 11 U/L (12-78); AST/SGOT 12 U/L (15-37); Albumin 2.9 g/dL (3.4-5.0); Alkaline Phosphatase 64 U/L (45-117); BUN Blood Urea Nitrogen 3 mg/dL (7-18); Bicarbonate 28 mmol/L (21-32); Bilirubin Total 0.3 mg/dL (0.2-1.0); Glucose Level 115 mg/dL (74-106); Potassium 3.7 mmol/L (3.5-5.1); Protein, Total 5.9 g/dL (6.4-8.2); Sodium Level 137 mmol/L (136-145)
--- NOTE | 2022-03-25 06:29 | P.PN ---
Date of Service: 03/25/22 Subjective: ROS: 10 point ROS as noted above, otherwise negative Physical exam GEN: Alert, oriented HEENT: Normal conjunctiva, sclera anicteric CV: Regular rate and rhythm, no edema Pulm: Non-labored respirations on room air ABD: soft, mild tenderness throughout Neuro: Normal speech, normal affect Problem List partial SBO vs Ileus Chronic pain, fibromyalgia,'s arthritis GERD Nicotine dependence Chronic hypoglycemia N.p.o., IV fluids Patient noted be hypoglycemic this morning, asymptomatic. States that she gets hypoglycemic very easily. Forgot to let us know. Normal saline switched to D5 half NS. KUB ordered for this morning, possibly to advance ice chips later today UA with bacteruria, patient denies symptoms of UTI, f/u culture Continue IV antibiotics IV pain medications as needed. Patient on chronic pain medication, HEAT AND FROST INSULATOR reviewed, no red flags General surgery consulted VTE: lovenox Code: full Dispo: home, 1-2 days improving slowly Time Spent Managing Pts Care (In Minutes): 35
[2022-03-25] MEDS ORDERED: D5.45NS W/KCL 20MEQ 20 MEQ/1,000 ML BAG IV SCH (08:00)
[2022-03-25] MEDS ORDERED: KCL 20 MEQ/100 mL IVPB 20 MEQ/100 ML BAG IV SCH (08:00)
--- NOTE | 2022-03-25 08:42 | RAD REPORT ---
EXAM DESCRIPTION: RAD - Abdomen 1 View (KUB) - 03/25/2022 5:34 am CLINICAL HISTORY: sbo Pain COMPARISON: Abdomen 1 View (KUB) dated 03/24/2022; Abdomen 1 View (KUB) dated 03/23/2022 FINDINGS: The bowel gas pattern is non-obstructive. No evidence of free air or pneumatosis. There is significant stool in the colon. No suspicious calcifications. No significant bony findings. IMPRESSION: Fecal retention without bowel obstruction evident.
[2022-03-25] MEDS ORDERED: POTASSIUM CL SA 10 MEQ TAB PO ONE (08:56)
[2022-03-25] MEDS: ENOXAPARIN 40 MG/0.4 ML SQ SCH (09:10)
[2022-03-25 09:25] VITALS: O2SAT 96
[2022-03-25] MEDS ORDERED: BISACODYL 10 MG RECTAL SUPP PR ONE (13:00)
[2022-03-25 17:30] VITALS: BP 136/72; TEMP 99.8
--- NOTE | 2022-03-25 20:31 | P.DS ---
Admission Date: 03/22/22 Discharge Date: 03/25/22 Disposition: ROUTINE DISCHARGE Discharge Condition: GOOD Reason for Admission: SBO Consultations: General Surgery - Dr. Isaacs Procedures: Problem List partial SBO vs Ileus, resolved chronic constipation Chronic pain, fibromyalgia,'s arthritis with opioid dependence GERD Nicotine dependence Chronic hypoglycemia Brief History of Present Illness: 66yo F, PMH: fibromyalgia, osteoarthritis, GERD and chronic pain presents emergency department complaints of abdominal pain, vomiting reports her symptoms began last night around 2 AM she reports 1 episode of vomiting around 5 AM had small bowel movement around that time as well. Denies any history of bowel obstruction she has had multiple abdominal surgeries including hysterectomy and bladder reconstruction. Her labs revealed mild leukocytosis, CT demonstrated dilated small bowel centrally may reflect ileus or partial small bowel obs truction no high-grade obstruction identified large colonic stool burden suggesting constipation small volume of abdominal pelvic free fluid Hospital Course: Patient was found to have ileus vs partial small bowel obstruction. She was treated empirically with IV zosyn, bowel rest, and IV fluids. Her diet was advanced to full liquids which she tolerated well. Repeat KUBs noted large stool burden in colon. Patient had a bowel movement after an enema. Recommend daily colace and to use a laxative, miralax or similar, if she does not have a bowel movement in 3 days. She is discharged home to completed 2 weeks of antibiotics. UA was concerning for possible UTI, however patient denied symptoms and urine culture was negative. Recommended to continue bland full liquid / soft diet Follow up with PCP within 1 week. Vital Signs/Physical Exam: Temp Pulse Resp BP Pulse Ox 99.8 F 66 18 136/72 97 03/25/22 16:00 03/25/22 16:00 03/25/22 16:00 03/25/22 16:00 03/25/22 16:00 Physical exam GEN: Alert, oriented HEENT: Normal conjunctiva, sclera anicteric CV: Regular rate and rhythm, no edema Pulm: Non-labored respirations on room air ABD: soft, minimal discomfort with palpation Neuro: Normal speech, normal affect Laboratory Data at Discharge: WBC 7.8 K/uL (4.3-10.9) D 03/25/22 05:37 Hgb 12.6 g/dL (12.0-15.0) 03/25/22 05:37 Hct 36.9 % (36.0-45.0) 03/25/22 05:37 Plt Count 263 K/uL (152-406) 03/25/22 05:37 Sodium 137 mmol/L (136-145) 03/25/22 05:37 Potassium 3.7 mmol/L (3.5-5.1) 03/25/22 05:37 BUN 3 mg/dL (7-18) L 03/25/22 05:37 Creatinine 0.38 mg/dL (0.55-1.3) L 03/25/22 05:37 Glucose 115 mg/dL (74-106) H 03/25/22 05:37 Magnesium 1.9 mg/dL (1.8-2.4) 03/24/22 05:27 Total Bilirubin 0.3 mg/dL (0.2-1.0) 03/25/22 05:37 AST 12 U/L (15-37) L 03/25/22 05:37 ALT 11 U/L (12-78) L 03/25/22 05:37 Alkaline Phosphatase 64 U/L (45-117) 03/25/22 05:37 Lipase 75 U/L (73-393) 03/22/22 16:13 Home Medications: Amox/Clavulanate [Augmentin 875-125 Tab] 875 mg PO BID 10 Days #20 tab 03/25/22 New Medications: Amox/Clavulanate [Augmentin 875-125 Tab] 875 mg PO BID 10 Days #20 tab Diet: [place] Activity: Ad stacey Time spent managing pt's care (in minutes): 45
== END 2022-03-25 16:00 | disposition home or self-care (01) | DRG 389 ==
LOC: ER 14:02 → ERHOLD 18:32 → 2ND 20:18
PROVIDERS: ADMIT Hospitalist; ATTEND Hospitalist
DX: K56.609 Unspecified intestinal obstruction, unspecified as to partial versus complete obstruction (principal); F11.20 Opioid dependence, uncomplicated; K56.7 Ileus, unspecified; K59.09 Other constipation; M79.7 Fibromyalgia; M19.90 Unspecified osteoarthritis, unspecified site; F17.210 Nicotine dependence, cigarettes, uncomplicated; K21.9 Gastro-esophageal reflux disease without esophagitis; Z20.822 Contact with and (suspected) exposure to COVID-19
CPT/HCPCS: 36415; 74018; 74177; 80048; 80053; 81003; 81015; 82947; 83690; 83735; 85025; 87086; 87088; 99285; J0744; J1170; J1650; J2405; J2543; J3480; J3490; J7030; Q9967; U0003

== ENCOUNTER 2023-05-21 18:59 | Emergency (ER) | payer OTHER ==
[2023-05-21] MEDS ORDERED: LIDOCAINE 1% W/EPI 1:100,000 50 ML MDV ONE (19:32)
--- NOTE | 2023-05-21 20:15 | EDPHYS ---
Physician Documentation [facility] Name: Kristin Meyers Age: 67 yrs Sex: Female : 1955 Arrival Date: 05/21/2023 Time: 18:59 Bed 12 Private MD: ED Physician Paolo Riley HPI: 05/21 19:27 This 67 yrs old Female presents to ER via Ambulatory with complaints of Skin Problem. ms3 19:27 67-year-old female with past medical history of back pain, chronic fatigue, chronic ms3 pain, fibromyalgia, osteoarthritis presents for abscess to the left parietal scalp. Patient states it has been present for 4 days. Patient states there was a small amount of drainage the night before last. Patient rates her pain a 7/10. Patient denies alleviating or inciting factors. Patient denies fevers, chills, nausea, vomiting, headache.. Historical: - Allergies: 19:12 Keflex; rv - Home Meds: 19:12 clonazepam 0.5 mg Oral tab 1 tab nightly [Active]; hydrocodone-acetaminophen 10-325 mg rv Oral tab 1 tab every 4 hours [Active]; Nuvigil 200 mg Oral tab twice a day [Active]; Tramadol Oral [Active]; - PMHx: 19:12 Back pain; chronic fatique; Chronic pain; Fibromyalgia; osteoarthritis; rv - Immunization history:: Adult Immunizations up to date. - Social history:: Smoking status: Patient denies any tobacco usage or history of. ROS: 19:27 Constitutional: Negative for fever, and chills. Neck: Negative for injury, pain, and ms3 swelling, Cardiovascular: Negative for chest pain, and palpitations. Respiratory: Negative for shortness of breath, cough, wheezing, and pleuritic chest pain, Abdomen/GI: Negative for abdominal pain, nausea, vomiting, diarrhea, and constipation, MS/Extremity: Negative for injury and deformity. 19:27 Skin: Positive for abscess. 19:27 All other systems are negative. Exam: 19:27 Constitutional: This is a well developed, well nourished patient who is awake, alert, ms3 and in no acute distress. Chest/axilla: Normal chest wall appearance and motion. Nontender with no deformity. Cardiovascular: Regular rate and rhythm with a normal S1 and S2. No gallops, murmurs, or rubs. Normal PMI, no JVD. No pulse deficits. Respiratory: Lungs have equal breath sounds bilaterally, clear to auscultation and percussion. No rales, rhonchi or wheezes noted. No increased work of breathing, no retractions or nasal flaring. Abdomen/GI: Soft, non-tender, with normal bowel sounds. No distension or tympany. No guarding or rebound. No evidence of tenderness throughout. Skin: Warm, dry with normal turgor. Normal color with no rashes, no lesions, and no evidence of cellulitis. MS/ Extremity: Pulses equal, no cyanosis. Neurovascular intact. Full, normal range of motion. 19:27 Head/face: Noted is Abscess left parietal scalp. Vital Signs: 19:10 BP 163 / 87; Pulse 72; Resp 17; Temp 98.5; Pulse Ox 100% on R/A; Weight 47.17 kg; rv Height 5 ft. 5 in. ; Pain 6/10; 20:47 Pulse 72; Resp 18; Pulse Ox 100% on R/A; kl 19:10 Body Mass Index 17.31 (47.17 kg, 165.1 cm) rv 19:10 Pain Scale: Adult rv Procedures: 20:12 I \T\ D: Incision and drainage was performed for an abscess of the left parietal area snw Prepped with hibiclens. Anesthetized with 5 ml's 1% Lidocaine. Incised with #10 blade. Drained small amount Loculations removed. Dressing: sterile 4x4 gauze, the patient tolerated the procedure poorly. MDM: 19:25 Patient medically screened. ms3 19:27 ED course: Bedside ultrasound shows fluid collection consistent with abscess on left ms3 parietal scalp. 22:00 Differential diagnosis: abscess, cellulitis. Data reviewed: vital signs, nurses notes, ms3 and as a result, I will discharge patient. I considered the following discharge prescriptions or medication management in the emergency department Medications were administered in the Emergency Department. See JAN. 05/22 00:01 Counseling: I had a detailed discussion with the patient and/or guardian regarding: the ms3 historical points, exam findings, and any diagnostic results supporting the discharge/admit diagnosis, the need for outpatient follow up, to return to the emergency department if symptoms worsen or persist or if there are any questions or concerns that arise at home. Response to treatment: the patient's symptoms have markedly improved after treatment, and as a result, I will discharge patient. Special discussion: I discussed with the patient/guardian in detail that at this point there is no indication for admission to the hospital. It is understood, however, that if the symptoms persist or worsen the patient needs to return immediately for re-evaluation. Administered Medications: 05/21 20:02 CANCELLED (Duplicate Order): Lidocaine-Epinephrine Infiltration -2 % (1:100,000) 10 ml rv Infiltration once; to bedside 20:02 Drug: Lidocaine-Epinephrine Infiltration -1%: (1:100,000) 10 ml {Note: administered by rv provider during I\T\D..} Volume: 20 ml; Route: Infiltration; Disposition: 21:59 Co-signature as Attending Physician, Paolo Riley DO I was immediately available on-site ms3 in the Emergency Department for consultation in the care of the patient. 05/22 00:01 Chart complete. ms3 Disposition Summary: 05/21/23 20:14 Discharge Ordered Location: Home ms3 Condition: Stable ms3 Diagnosis - Cutaneous abscess of head [any part, except face] ms3 Followup: ms3 - With: Bonifacio Boothe MD - When: 2 - 3 days - Reason: Recheck today's complaints Discharge Instructions: - Discharge Summary Sheet ms3 - Skin Abscess ms3 - Incision and Drainage ms3 Forms: - Medication Reconciliation Form ms3 - Thank You Letter ms3 - Antibiotic Education ms3 - Prescription Opioid Use ms3 Prescriptions: - Doxycycline Hyclate 100 mg Oral Tablet - take 1 tablet by ORAL route every 12 hours; 20 tablet; Refills: 0, Product ms3 Selection Permitted Signatures: Clemencia Abreu FNP-Nery CHIEF KNOWLEDGE OFFICER-Armando Emerson RN RN Paolo Loo DO DO ms3 Corrections: (The following items were deleted from the chart) 05/21 20:02 19:26 Lidocaine-Epinephrine Infiltration -2 % (1:100,000) 10 ml Infiltration once; to rv bedside ordered. ms3
--- NOTE | 2023-05-21 20:15 | ER ---
Nurse's Notes [facility] Name: Kristin Meyers Age: 67 yrs Sex: Female : 1955 Arrival Date: 05/21/2023 Time: 18:59 Bed 12 Private MD: Diagnosis: Cutaneous abscess of head [any part, except face] Presentation: 05/21 19:10 Chief complaint: Patient states: abscess on the back of the head, complaining of head rv and low grade fever at home. Coronavirus screen: Vaccine status: Patient reports receiving the 2nd dose of the covid vaccine. Ebola Screen: Patient negative for fever greater than or equal to 101.5 degrees Fahrenheit, and additional compatible Ebola Virus Disease symptoms Patient denies exposure to infectious person. Patient denies travel to an Ebola-affected area in the 21 days before illness onset. Initial Sepsis Screen: Does the patient meet any 2 criteria? No. Patient's initial sepsis screen is negative. Does the patient have a suspected source of infection? No. Patient's initial sepsis screen is negative. Risk Assessment: Do you want to hurt yourself or someone else? Patient reports no desire to harm self or others. Onset of symptoms was May 17, 2023. 19:10 Method Of Arrival: Ambulatory rv 19:10 Acuity: ANAHI 4 rv Triage Assessment: 19:12 General: Appears comfortable, Behavior is calm, cooperative. Pain: Complains of pain in rv left parietal area. Neuro: Level of Consciousness is awake, alert, obeys commands, Oriented to person, place, time, situation. Cardiovascular: Capillary refill < 3 seconds. Respiratory: Airway is patent. Derm: Abscess located on scalp. Historical: - Allergies: 19:12 Keflex; rv - Home Meds: 19:12 clonazepam 0.5 mg Oral tab 1 tab nightly [Active]; hydrocodone-acetaminophen 10-325 mg rv Oral tab 1 tab every 4 hours [Active]; Nuvigil 200 mg Oral tab twice a day [Active]; Tramadol Oral [Active]; - PMHx: 19:12 Back pain; chronic fatique; Chronic pain; Fibromyalgia; osteoarthritis; rv - Immunization history:: Adult Immunizations up to date. - Social history:: Smoking status: Patient denies any tobacco usage or history of. Screenin:14 [facility] ED Fall Risk Assessment (Adult) History of falling in the last 3 months, rv including since admission No falls in past 3 months (0 pts). Abuse screen: Denies threats or abuse. Denies injuries from another. Nutritional screening: No deficits noted. Tuberculosis screening: No symptoms or risk factors identified. Assessment: 20:47 Reassessment: Patient appears in no apparent distress at this time. Patient states kl feeling better. Patient states symptoms have improved. Vital Signs: 19:10 BP 163 / 87; Pulse 72; Resp 17; Temp 98.5; Pulse Ox 100% on R/A; Weight 47.17 kg; rv Height 5 ft. 5 in. ; Pain 6/10; 20:47 Pulse 72; Resp 18; Pulse Ox 100% on R/A; kl 19:10 Body Mass Index 17.31 (47.17 kg, 165.1 cm) rv 19:10 Pain Scale: Adult rv ED Course: 19:05 Patient arrived in ED. im 19:09 Paolo Riley DO is Attending Physician. ms3 19:12 Triage completed. rv 19:13 Arm band placed on left wrist. rv 19:14 Armando Shah, KASI is Primary Nurse. rv 19:14 Patient has correct armband on for positive identification. Client placed on continuous rv cardiac and pulse oximetry monitoring. NIBP monitoring applied. 20:02 Assist provider with I \T\ D: of an abscess on scalp. Patient did not have IV access rv during this emergency room visit. 20:13 Bonifacio Boothe MD is Referral Physician. ms3 20:46 Dressings: [place] X 1; scalp 4X4s X 1; scalp. kl Administered Medications: 20:02 CANCELLED (Duplicate Order): Lidocaine-Epinephrine Infiltration -2 % (1:100,000) 10 ml rv Infiltration once; to bedside 20:02 Drug: Lidocaine-Epinephrine Infiltration -1%: (1:100,000) 10 ml {Note: administered by rv provider during I\T\D..} Volume: 20 ml; Route: Infiltration; Medication: 19:14 VIS not applicable for this client. rv Outcome: 20:14 Discharge ordered by . ms3 20:47 Discharged to home ambulatory. kl 20:47 Condition: stable 20:47 Discharge instructions given to patient, Instructed on discharge instructions, follow up and referral plans. medication usage, wound care, Demonstrated understanding of instructions, follow-up care, medications, wound care, Prescriptions given X 1. 20:47 Patient left the ED. kl Signatures: Sandy Price RN RN kl Vicente, Ronaldo, RN RN rv Sims, Marcus, DO DO ms3 Aenta Leonardo
[2023-05-21 21:07] VITALS: BP 163/87; TEMP 98.5; O2SAT 100
== END 2023-05-21 20:47 | disposition home or self-care (01) ==
LOC: ER 18:59
DX: L02.811 Cutaneous abscess of head [any part, except face] (principal); Z88.8 Allergy status to other drugs, medicaments and biological substances; M79.7 Fibromyalgia
CPT/HCPCS: 99283

== ENCOUNTER 2024-08-28 14:54 | Emergency (ER) | payer OTHER ==
[2024-08-28 15:58] LABS: Absolute Basophils 0.1 K/uL (0-0.5); Absolute Eosinophils 0.1 K/uL (0-0.5); Absolute Lymphocytes (CBC) 1.5 K/uL (0.7-4.9); Absolute Monocytes 0.8 K/uL (0.1-1.3); Absolute Neutrophil 3.6 K/uL (1.8-8.0); Basophils % 0.9 % (0-1.3); Hematocrit 38.8 % (36.0-45.0); Hemoglobin 13.1 g/dL (12.0-15.0); Lymphocytes % 25.3 % (15.3-44.8); MCH 30.7 pg (27.0-35.0); MCHC 33.6 g/dL (32.0-36.0); MCV 91.2 fL (80-100); MPV 8.7 fL (7.6-11.3); Monocytes % 12.6 % (3.3-12.3); Neutrophils % 59.2 % (41.7-73.7); Platelets 312 thou/uL (152-406); RBC Red Blood Cell Count 4.26 M/uL (3.86-4.86); Red Cell Distribution Width 13.4 % (12.1-15.2)
--- NOTE | 2024-08-28 16:03 | RAD REPORT ---
EXAMINATION: ONE VIEW CHEST XR CLINICAL INDICATION: Female, 68 years old.CHEST PAIN TECHNIQUE: 1 View, AP supine, X-ray of the chest was performed. [id number]. COMPARISON: 03/25/2022 FINDINGS: Lungs and pleura: Clear lungs. No effusion. Heart and mediastinum: Normal heart size. Unremarkable mediastinal contours. Osseous structures: No acute abnormality. Scoliosis. Tubes/lines: None Other: None. IMPRESSION: No acute intrathoracic abnormality.
[2024-08-28 16:14] LABS: ALT/SGPT 16 U/L (13-56); AST/SGOT 13 U/L (15-37); Albumin 3.9 g/dL (3.4-5.0); Albumin/Globulin Ratio 1.1 (1.1-1.8); Alkaline Phosphatase 83 U/L (45-117); Anion Gap 6.9 mEq/L (5.0-15.0); BUN Blood Urea Nitrogen 19 mg/dL (7-18); Bicarbonate 27 mEq/L (21-32); Bilirubin Total 0.4 mg/dL (0.2-1.0); Globulin 3.5 g/dL (2.3-3.5); Glomerular Filtration Rate 103 ml/min (=/>90); Glucose Level 136 mg/dL (74-106); NT PRO-BNP 145 pg/mL (<125); Potassium 3.9 mEq/L (3.5-5.1); Protein, Total 7.4 g/dL (6.4-8.2); Sodium Level 133 mEq/L (136-145); Troponin High Sensitivity 9.9 pg/mL (<58.9)
[2024-08-28 16:17] LABS: Bilirubin Direct < 0.2 mg/dL (0-0.2); Bilirubin Indirect, Calculated 0.2 mg/dL (0.2-0.8)
[2024-08-28 16:23] LABS: PT Prothrombin Time 11.9 SECONDS (9.4-12.5); Protime INR 1.06
--- NOTE | 2024-08-28 16:50 | EDPHYS ---
Physician Documentation [facility] Name: Kristin Meyers Age: 68 yrs Sex: Female : 1955 Arrival Date: 08/28/2024 Time: 14:54 Bed 18 Private MD: ED Physician Epi Love HPI: 08/28 15:20 This 68 yrs old Female presents to ER via Ambulatory with complaints of Abnormal Lab sb4 Results. 15:20 Patient states that she was getting her preoperative workup done today, including EKG sb4 which showed atrial fibrillation with a rate in the 70s. She denies any known history of atrial fibrillation. She denies any chest pain, palpitations, shortness of breath. She states that she occasionally feels like her heart skips beats at night. She states that she is otherwise healthy, only takes medication for smoking cessation. Historical: - Allergies: 15:07 Keflex; ll1 15:07 Cephalexin Monohydrate; ll1 - PMHx: 15:07 Back pain; chronic fatique; Chronic pain; Fibromyalgia; osteoarthritis; ll1 - Immunization history:: Adult Immunizations up to date. - Infectious Disease History:: Denies. - Social history:: Smoking status: Patient reports the use of cigarette tobacco products, smokes one-half pack cigarettes per day. ROS: 15:20 Constitutional: Negative for fever, chills, and weight loss, sb4 15:20 All other systems are negative, Exam: 15:20 Constitutional: This is a well developed, well nourished patient who is awake, alert, sb4 and in no acute distress. Head/Face: Normocephalic, atraumatic. Eyes: Extra-ocular motions intact. Periorbital areas with no swelling, redness, or edema. ENT: Mucous membranes moist. Respiratory: Lungs have equal breath sounds bilaterally, clear to auscultation and percussion. No rales, rhonchi or wheezes noted. No increased work of breathing, no retractions or nasal flaring. Skin: Warm, dry with normal turgor. Normal color with no rashes, no lesions, and no evidence of cellulitis. 15:20 Cardiovascular: Rate: normal, Rhythm: irregular, Vital Signs: 15:07 BP 143 / 96; Pulse 79; Resp 16; Temp 97.1; Pulse Ox 95% ; Weight 48.99 kg; Height 5 ft. ll1 5 in. ; Pain 0/10; 17:11 BP 127 / 75; Pulse 65; Resp 19; Temp 97.1; Pulse Ox 95% on R/A; MAP 87 mmHg; Pain 0/10; tm6 15:07 Body Mass Index 17.97 (48.99 kg, 165.1 cm) ll1 15:07 Pain Scale: Adult ll1 17:11 Pain Scale: Adult tm6 MDM: 15:02 Patient medically screened. sb4 16:05 Data reviewed: vital signs, nurses notes, lab test result(s), EKG, radiologic studies, sb4 I have discussed the patient's presentation/case with the attending Emergency Department Physician; and as a result, I will discharge patient. Consideration of Admission/Observation Escalation of care including admission/observation considered. Counseling: I had a detailed discussion with the patient and/or guardian regarding the historical points, exam findings, and any diagnostic results supporting the discharge/admit diagnosis, the presence of at least one elevated blood pressure reading (>120/80) during this emergency department visit, lab results, radiology results, the need for outpatient follow up, a transitions rn care coordinator, to return to the emergency department if symptoms worsen or persist or if there are any questions or concerns that arise at home, smoking cessation. 08/28 15:20 Order name: Basic Metabolic Panel; Complete Time: 16:21 sb4 08/28 15:20 Order name: CBC with Diff; Complete Time: 16:01 sb4 08/28 15:20 Order name: LFT's; Complete Time: 16:21 sb4 08/28 15:20 Order name: Magnesium; Complete Time: 16:21 sb4 08/28 15:20 Order name: NT PRO-BNP; Complete Time: 16:21 sb4 08/28 15:20 Order name: PT-INR; Complete Time: 16:23 sb4 08/28 15:20 Order name: Troponin HS; Complete Time: 16:21 sb4 08/28 15:20 Order name: XRAY Chest (1 view); Complete Time: 16:04 sb4 08/28 15:20 Order name: Cardiac monitoring; Complete Time: 15:55 sb4 08/28 15:20 Order name: EKG - Nurse/Tech; Complete Time: 15:55 sb4 08/28 15:20 Order name: IV Saline Lock; Complete Time: 15:55 sb4 08/28 15:20 Order name: Labs collected and sent; Complete Time: 15:55 sb4 08/28 15:20 Order name: O2 Per Protocol; Complete Time: 15:55 sb4 08/28 15:20 Order name: O2 Sat Monitoring; Complete Time: 15:55 sb4 08/28 16:24 Order name: EKG - Nurse/Tech: repeat pls; Complete Time: 16:47 sb4 EC:47 Rate is 60 beats/min. Rhythm is irregular, Sinus arrythmia. IN interval is normal at sb4 160 msec. QRS interval is normal at 92 msec. QT interval is normal at 420 msec. No Q waves. T waves are Normal. No ST changes noted. Clinical impression: Sinus arrythmia. Interpreted by me. Reviewed by me. 16:45 Rate is 55 beats/min. Rhythm is regular, Sinus arrythmia. IN interval is normal at 150 sb4 msec. QRS interval is normal at 86 msec. QT interval is normal at 434 msec. No Q waves. T waves are Normal. No ST changes noted. Clinical impression: Sinus arrythmia and No evidence of ischemia. Reviewed by me. Administered Medications: No medications were administered Disposition: 17:20 Co-signature as Attending Physician, Epi Love MD I reviewed the patient's care rn provided by the Advanced Practice Provider and agree with the diagnosis and treatment plan. Disposition Summary: 08/28/24 16:49 Discharge Ordered Notes: Location: Home sb4 Problem: new sb4 Symptoms: are unchanged sb4 Condition: Stable sb4 Diagnosis - Sinus arrhythmia sb4 Followup: sb4 - With: Jerry Chan MD - When: 2 - 3 days - Reason: Further diagnostic work-up, Recheck today's complaints, Re-evaluation by your physician Discharge Instructions: - Discharge Summary Sheet sb4 Forms: - Patient Portal Instructions sb4 - Leadership Thank You Letter sb4 Signatures: Dispatcher [employer] Epi Masters MD MD rn Lewis, Lynsay, RN RN ll1 Ella Perez PA-C PA-C sb4 Daly Benedict RN RN tm6 Corrections: (The following items were deleted from the chart) 15:21 15:21 BASIC METABOLIC PANEL+C.LAB.BRZ ordered. EDMS EDMS 15:21 15:21 CBC+H.LAB.BRZ ordered. EDMS EDMS 15:21 15:21 HEPATIC FUNCTION+C.LAB.BRZ ordered. EDMS EDMS 15:21 15:21 MAGNESIUM+C.LAB.BRZ ordered. EDMS EDMS 15:21 15:21 PROBNP+C.LAB.BRZ ordered. EDMS EDMS 15:21 15:21 PROTIME (+INR)+COAG.LAB.BRZ ordered. EDMS EDMS 15:21 15:21 Troponin High Sensitivity+C.LAB.BRZ ordered. EDMS EDMS 15:21 15:21 Chest Single View+RAD.RAD.BRZ ordered. EDMS EDMS 15:47 15:20 Cardiovascular: Rate: normal, Rhythm: irregularly irregular, sb4 sb4
--- NOTE | 2024-08-28 16:50 | ER ---
Nurse's Notes [facility] Name: Kristin Meyers Age: 68 yrs Sex: Female : 1955 Arrival Date: 08/28/2024 Time: 14:54 Bed 18 Private MD: Diagnosis: Sinus arrhythmia Presentation: 08/28 15:07 Chief complaint: Patient states: Testing for GI center for epidural today. Found to be ll1 in A fib, sent in for further testing. Has had CP off/on for over 10 months. Coronavirus screen: Client denies travel out of the [place] in the last 14 days. At this time, the client does not indicate any symptoms associated with coronavirus-19. Ebola Screen: Patient denies travel to an Ebola-affected area in the 21 days before illness onset. Initial Sepsis Screen: Does the patient meet any 2 criteria? No. Patient's initial sepsis screen is negative. Does the patient have a suspected source of infection? No. Patient's initial sepsis screen is negative. Risk Assessment: Do you want to hurt yourself or someone else? Patient reports no desire to harm self or others. Onset of symptoms was August 28, 2024. 15:07 Method Of Arrival: Ambulatory ll1 15:07 Acuity: ANAHI 3 ll1 Triage Assessment: 17:13 General: Appears in no apparent distress. Behavior is calm, cooperative. Pain: Denies tm6 pain. Historical: - Allergies: 15:07 Keflex; ll1 15:07 Cephalexin Monohydrate; ll1 - PMHx: 15:07 Back pain; chronic fatique; Chronic pain; Fibromyalgia; osteoarthritis; ll1 - Immunization history:: Adult Immunizations up to date. - Infectious Disease History:: Denies. - Social history:: Smoking status: Patient reports the use of cigarette tobacco products, smokes one-half pack cigarettes per day. Screenin:11 [facility] ED Fall Risk Assessment (Adult) History of falling in the last 3 months, tm6 including since admission No falls in past 3 months (0 pts) Confusion or Disorientation No (0 pts) Intoxicated or Sedated No (0 pts) Impaired Gait No (0 pts) Mobility Assist Device Used No (0 pt) Altered Elimination No (0 pt) Score/Fall Risk Level 0 - 2 = Low Risk Oriented to surroundings, Maintained a safe environment, Educated pt \T\ family on fall prevention, incl call for assistance when getting out of bed. Abuse screen: Denies threats or abuse. Denies injuries from another. Nutritional screening: No deficits noted. Tuberculosis screening: No symptoms or risk factors identified. Assessment: 15:30 General: Appears in no apparent distress. comfortable, slender, well groomed, well kc6 developed, Behavior is calm, cooperative, appropriate for age. Pain: Denies pain. Neuro: Level of Consciousness is awake, alert, obeys commands, Oriented to person, place, time, situation, Appropriate for age. Cardiovascular: Reports palpitations, Denies chest pain, shortness of breath, Heart tones S1 S2 present Capillary refill < 3 seconds Rhythm is regular. Respiratory: Airway is patent Trachea midline Respiratory effort is even, unlabored, Respiratory pattern is regular, symmetrical. GI: No signs and/or symptoms were reported involving the gastrointestinal system. : No signs and/or symptoms were reported regarding the genitourinary system. EENT: No signs and/or symptoms were reported regarding the EENT system. Derm: No signs and/or symptoms reported regarding the dermatologic system. Skin is intact, is healthy with good turgor, Skin is pink, warm \T\ dry. Musculoskeletal: No signs and/or symptoms reported regarding the musculoskeletal system. Circulation, motion, and sensation intact. Capillary refill < 3 seconds, Range of motion: intact in all extremities. 16:30 Reassessment: Patient appears in no apparent distress at this time. No changes from kc6 previously documented assessment. Patient and/or family updated on plan of care and expected duration. Pain level reassessed. Patient is alert, oriented x 3, equal unlabored respirations, skin warm/dry/pink. Vital Signs: 15:07 BP 143 / 96; Pulse 79; Resp 16; Temp 97.1; Pulse Ox 95% ; Weight 48.99 kg; Height 5 ft. ll1 5 in. ; Pain 0/10; 17:11 BP 127 / 75; Pulse 65; Resp 19; Temp 97.1; Pulse Ox 95% on R/A; MAP 87 mmHg; Pain 0/10; tm6 15:07 Body Mass Index 17.97 (48.99 kg, 165.1 cm) ll1 15:07 Pain Scale: Adult ll1 17:11 Pain Scale: Adult tm6 ED Course: 14:58 Patient arrived in ED. mg5 15:00 Ella Perez PA-C is PHCP. sb4 15:00 Epi Love MD is Attending Physician. sb4 15:07 Arm band placed on Patient placed in an exam room, on a stretcher. ll1 15:07 Patient has correct armband on for positive identification. Provided Education on: tm6 follow up with PCP. 15:09 Triage completed. ll1 15:25 Inserted saline lock: 20 gauge in right antecubital area, using aseptic technique. rs5 Blood collected. Flushed with 10 mL NS. 15:25 No provider procedures requiring assistance completed. rs5 15:30 gambling monitor on. Pulse ox on. NIBP on. Door closed. Noise minimized. Lights dimmed. kc6 Warm blanket given. Pillow given. 15:30 Patient maintains SpO2 saturation greater than 95% on room air. kc6 15:53 XRAY Chest (1 view) In Process Unspecified. EDMS 16:32 Tamera Cullen, RN is Primary Nurse. kc6 16:49 Jerry Chan MD is Referral Physician. sb4 17:12 IV discontinued, intact, bleeding controlled, No redness/swelling at site. Pressure tm6 dressing applied. Administered Medications: No medications were administered Medication: 17:11 VIS not applicable for this client. tm6 Outcome: 16:49 Discharge ordered by . sb4 17:13 Discharged to home ambulatory, tm6 17:13 Condition: stable 17:13 Discharge instructions given to patient, Instructed on discharge instructions, follow up and referral plans. Demonstrated understanding of instructions, follow-up care, 17:13 Patient left the ED. tm6 Signatures: Dispatcher [employer] EDMS Liz Price, RN RN ll1 Tamera Cullen, RN RN kc6 Ella Perez PA-C PA-C sb4 Judah Castro RN RN rs5 Nanci Piper mg5 Daly Benedict RN RN tm6 Corrections: (The following items were deleted from the chart) 17:12 15:07 IV discontinued, intact, bleeding controlled, No redness/swelling at site. tm6 Pressure dressing applied, tm6
[2024-08-29 07:21] VITALS: TEMP 97.1; O2SAT 95
[2024-08-29 07:24] VITALS: BP 127/75
--- NOTE | 2024-08-30 16:40 | EKG ---
Test Date: 2024-08-28 Test Time: 15:40:34 Record Press Tender: CHELSI MEASUREMENT RESULTS: Intervals: Rate: 60 CO: 160 QRSD: 92 QT: 420 QTc: 420 [place]: P: 72 CO: 160 QRS: 57 T: 84 INTERPRETIVE STATEMENTS: Sinus rhythm with marked sinus arrhythmia Septal infarct, age undetermined Abnormal ECG Compared to ECG 08/14/2020 02:56:49 No significant changes Electronically Signed On 08-30-24 16:34:11 CDT by Jerry Chan
--- NOTE | 2024-08-30 16:40 | EKG ---
Test Date: 2024-08-28 Test Time: 16:42:28 Direct Selling Counselor: DARLENE MEASUREMENT RESULTS: Intervals: Rate: 55 OK: 150 QRSD: 86 QT: 434 QTc: 415 [place]: P: 58 OK: 150 QRS: 47 T: 74 INTERPRETIVE STATEMENTS: Sinus bradycardia with marked sinus arrhythmia Septal infarct, age undetermined Abnormal ECG Compared to ECG 08/28/2024 15:40:34 Sinus rhythm no longer present Myocardial infarct finding still present Electronically Signed On 08-30-24 16:34:09 CDT by Jerry Chan
== END 2024-08-28 17:13 | disposition home or self-care (01) ==
LOC: ER 14:54
DX: I49.8 Other specified cardiac arrhythmias (principal); F17.210 Nicotine dependence, cigarettes, uncomplicated; Z88.1 Allergy status to other antibiotic agents; M79.7 Fibromyalgia; M19.90 Unspecified osteoarthritis, unspecified site; G89.29 Other chronic pain
CPT/HCPCS: 36415; 71045; 80048; 80076; 83735; 83880; 84484; 85025; 85610; 93005; 99284

== ENCOUNTER 2025-03-01 10:49 | Emergency (ER) | payer OTHER ==
--- NOTE | 2025-03-01 11:27 | EDPHYS ---
Physician Documentation [facility] Name: Kristin Meyers Age: 69 yrs Sex: Female : 1955 Arrival Date: 03/01/2025 Time: 10:49 Bed 12 Private MD: ED Physician Sekou Wilkerson HPI: 03/01 11:38 This 69 yrs old Female presents to ER via Ambulatory with complaints of Wound Check - sb4 head. 11:39 The patient presents with an abscess of the right frontal area. Description: The sb4 affected area is small, localized, draining. Onset: The symptoms/episode began/occurred 4 day(s) ago. Possible cause(s): unknown. The patient has experienced similar episodes in the past, several times, but today's symptoms are not as bad as this previous episode. Historical: - Allergies: 11:08 Cephalexin Monohydrate; iw 11:08 Keflex; iw 12:03 Bactrim; iw - PMHx: 11:08 chronic fatique; Back pain; Chronic pain; Fibromyalgia; osteoarthritis; iw ROS: 11:39 Constitutional: Negative for fever, chills, and weight loss, sb4 11:39 Skin: Positive for abscess, of the right frontal area, 11:39 All other systems are negative, Exam: 11:39 Constitutional: This is a well developed, well nourished patient who is awake, alert, sb4 and in no acute distress. Eyes: Extra-ocular motions intact. Periorbital areas with no swelling, redness, or edema. ENT: Mucous membranes moist. Respiratory: No increased work of breathing, no retractions or nasal flaring. 11:39 Skin: abscess, that is small, approximately 1.5 cm(s), of the right frontal area, with fluctuance, that is mild, with surrounding cellulitis, that is very mild, Vital Signs: 11:07 BP 168 / 110; Pulse 95; Resp 16; Temp 97.5; Pulse Ox 95% on R/A; iw Procedures: 11:39 I \T\ D: Incision and drainage was performed for an abscess of the right right frontal sb4 area Prepped with Betadine, Incised with 21 gauge. Drained small amount purulent fluid. Cultures obtained. Dressing: None the patient tolerated the procedure well. MDM: 10:55 Medical Screening Exam initiated sb4 11:39 Data reviewed: vital signs, nurses notes. sb4 11:41 Data reviewed: and as a result, I will discharge patient. Counseling: I had a detailed sb4 discussion with the patient and/or guardian regarding the historical points, exam findings, and any diagnostic results supporting the discharge/admit diagnosis, the need for outpatient follow up, for definitive care, to return to the emergency department if symptoms worsen or persist or if there are any questions or concerns that arise at home. 03/01 11:14 Order name: Wound Culture; Complete Time: 09:18 sb4 Administered Medications: No medications were administered Disposition Summary: 03/01/25 11:26 Discharge Ordered Notes: Location: Home sb4 Problem: new sb4 Symptoms: have improved sb4 Condition: Stable sb4 Diagnosis - Cutaneous abscess of head [any part, except face] sb4 Followup: sb4 - With: Private Physician - When: 1 week - Reason: Recheck today's complaints, Re-evaluation by your physician Discharge Instructions: - Discharge Summary Sheet sb4 - Skin Abscess, [id number] sb4 - Incision and Drainage, Care After sb4 Forms: - Antibiotic Education sb4 - Patient Portal Instructions sb4 - Leadership Thank You Letter sb4 Prescriptions: - Clindamycin HCl 300 mg Oral Capsule - take 1 capsule ORAL route every 6 hours for 10 days; 40 capsule; Refills: 0, sb4 Product Selection Permitted Signatures: Dispatcher [employer] Georgina Tovar RN RN Ella Mix PA-C PA-C sb4 Corrections: (The following items were deleted from the chart) 11:41 11:39 I \T\ D: Incision and drainage was performed for an abscess of the right right sb4 frontal area Prepped with Betadine, Incised with 21 gauge. Drained small amount purulent fluid. Dressing: None the patient tolerated the procedure well, sb4
--- NOTE | 2025-03-01 11:27 | ER ---
Nurse's Notes [facility] Name: Kristin Meyesr Age: 69 yrs Sex: Female : 1955 Arrival Date: 03/01/2025 Time: 10:49 Bed 12 Private MD: Diagnosis: Cutaneous abscess of head [any part, except face] Presentation: 03/01 11:07 Chief complaint: Patient states: she has a sore on top of her head , painful tot touch iw , is draining. Coronavirus screen: At this time, the client does not indicate any symptoms associated with coronavirus-19. Ebola Screen: No symptoms or risks identified at this time. Initial Sepsis Screen: Does the patient meet any 2 criteria? No. Patient's initial sepsis screen is negative. Does the patient have a suspected source of infection? No. Patient's initial sepsis screen is negative. Risk Assessment: Do you want to hurt yourself or someone else? Patient reports no desire to harm self or others. Onset of symptoms. 11:07 Method Of Arrival: Ambulatory iw 11:07 Acuity: ANAHI 3 iw Triage Assessment: 11:15 General: Appears in no apparent distress. Behavior is calm, cooperative. iw Historical: - Allergies: 11:08 Cephalexin Monohydrate; iw 11:08 Keflex; iw 12:03 Bactrim; iw - PMHx: 11:08 chronic fatique; Back pain; Chronic pain; Fibromyalgia; osteoarthritis; iw Screenin:00 [facility] ED Fall Risk Assessment (Adult) History of falling in the last 3 months, iw including since admission No falls in past 3 months (0 pts) Confusion or Disorientation No (0 pts) Intoxicated or Sedated No (0 pts) Impaired Gait No (0 pts) Mobility Assist Device Used No (0 pt) Altered Elimination No (0 pt) Score/Fall Risk Level 0 - 2 = Low Risk Oriented to surroundings, Maintained a safe environment. Abuse screen: Denies threats or abuse. Denies injuries from another. Nutritional screening: No deficits noted. Tuberculosis screening: No symptoms or risk factors identified. Assessment: 11:11 General: Appears in no apparent distress. Behavior is calm, cooperative. Pain: Denies iw pain. Neuro: Level of Consciousness is awake, alert, obeys commands, Oriented to person, place, time, situation. Cardiovascular: Patient's skin is warm and dry. Derm: Abscess located on top of head is nickel sized, is hot to touch, is raised. Musculoskeletal: Range of motion: intact in all extremities. 11:53 Reassessment: pt states she had a reaction to Bactrim last time she had it , it caused iw her sodium to drop. Vital Signs: 11:07 BP 168 / 110; Pulse 95; Resp 16; Temp 97.5; Pulse Ox 95% on R/A; iw ED Course: 10:52 Patient arrived in ED. im 10:53 Ella Perez PA-C is PHCP. sb4 10:53 Sekou Wilkerson MD is Attending Physician. sb4 11:08 Triage completed. iw 11:15 Patient has correct armband on for positive identification. iw 11:49 Arm band placed on. iw 11:53 Georgina Guthrie, RN is Primary Nurse. iw 12:02 No provider procedures requiring assistance completed. IV discontinued, intact, iw bleeding controlled, No redness/swelling at site. Pressure dressing applied. Administered Medications: No medications were administered Medication: 11:15 VIS not applicable for this client. iw Outcome: 11:26 Discharge ordered by . sb4 12:03 Discharged to home ambulatory, iw 12:03 Condition: good 12:03 Discharge instructions given to patient, Instructed on discharge instructions, follow up and referral plans. medication usage, Demonstrated understanding of instructions, follow-up care, medications, Prescriptions given X 1, 12:03 Patient left the ED. iw Signatures: Georgina Guthrie, RN RN iw Ella Perez PA-C PA-C sb4 Aneta Leonardo im
[2025-03-01 12:07] VITALS: BP 168/110; TEMP 97.5; O2SAT 95
== END 2025-03-01 12:03 | disposition home or self-care (01) ==
LOC: ER 10:49
PROC: 0H90XZZ Drainage of Scalp Skin, External Approach (ICD-10-PCS; principal; 2025-03-01)
DX: L02.811 Cutaneous abscess of head [any part, except face] (principal)
CPT/HCPCS: 87070; 87077; 87186; 87205; 99283